=== PATIENT | male | born 1985 | race Two or more races ===

== ENCOUNTER 2025-03-20 10:29 | Inpatient (IN) | payer MEDICAID, OTHER ==
[~2025-03-20] VITALS: Ht 170.2 cm; Wt 79.3 kg
--- NOTE | 2025-03-20 10:58 | ED.PDOC ---
GI ASSESSMENT HPI Comments 39 y/o M, with PMHx of DM presents to the ED for CC of nausea and vomiting. Patient states, that he has been experiencing nausea, vomiting, and diarrhea x3days. Patient reports,m associated epigastric abdominal pain when vomiting. Patient reports, that he ate an edible x6days ago and is unsure if symptoms are related. Patient complains, of current 5/10 abdominal pain. Patient denies dysuria, fever, melena, fatigue, or fever. No other symptoms or modifying factors present at this time. Time Seen by MD: 10:50 Reviewed Notes: Nurses Notes, Medications, Allergies Allergies: Coded Allergies: NO KNOWN ALLERGIES (Unverified , 03/20/25) Information Source: Patient Mode of Arrival: Ambulatory Timing: Days Duration: Since onset Prehospital treatment: None Quality: None Vomitus: Watery Stool: Watery Severity: None Recent: None Recent Hx of: None Pain Location: Epigastric Modifying Factors: Nothing Associated sign and symptoms: Nausea, Vomiting, Diarrhea, Abdominal Pain Past Medical History PAST MEDICAL HISTORY: DM Surgical History (Other): cyst Family History Family History: Unknown Social History Smoker: Other (vapes) Alcohol: Occasionally Drugs: Other (edibels) Lives In: Home Constitutional: denies: chills, diaphoresis, fatigue, fever, malaise, sweats, weakness, others EENTM: denies: blurred vision, double vision, ear bleeding, ear discharge, ear drainage, ear pain, ear ringing, eye pain, eye redness, hearing loss, mouth pain, mouth swelling, nasal discharge, nose bleeding, nose congestion, nose pain, photophobia, tearing, throat pain, throat swelling, voice changes, others Respiratory: denies: cough, hemoptysis, orthopnea, SOB at rest, shortness of breath, SOB with excertion, stridor, wheezing, others Cardiovascular: denies: chest pain, dizzy spells, diaphoresis, Dyspnea on exertion, edema, irregular heart beat, left arm pain, lightheadedness, palpitations, PND, syncope, others Gastrointestinal: reports: abdominal pain, diarrhea, nausea, vomiting; denies: abdomen distended, blood streaked bowels, constipated, dysphagia, difficulty swallowing, hematemesis, melena, poor appetite, poor fluid intake, rectal ble eding, rectal pain, others Genitourinary: denies: burning, dysuria, flank pain, frequency, hematuria, inco ntinence, penile discharge, penile sore, pain, testicle pain, testicle swelling, urgency, others Neurological: denies: dizziness, fainting, headache, left sided numbness, left sided weakness, numbness, paresthesia, pre-existing deficit, right sided numbness, right sided weakness, seizure, speech problems, tingling, tremors, weakness, others Musculoskeletal: denies: back pain, gout, joint pain, joint swelling, muscle pain, muscle stiffness, neck pain, others Integumetry: denies: bruises, change in color, change in hair/nails, dryness, laceration, lesions, lumps, rash, wounds, others Allergic/Immunocompromised: denies: Difficulty Healing, Frequent Infections, Hives, Itching, others Hematologic/Lymphatic: denies: anemia, blood clots, easy bleeding, easy bruising, swollen glands, others Endocrine: denies: excessive hunger, excessive sweating, excessive thirst, excessive urination, flushing, intolerance to cold, intolerance to heat, unexplained weight gain, unexplained weight loss, others Psychiatric: denies: anxiety, bipolar disorder, depression, hopeless, panic disorder, schizophrenia, sleepless, suicidal, others All Other Systems: Reviewed and Negative Physical Exam General Appearance: Moderate Distress HEENT: Normal ENT Inspection, Pharynx Normal, TMs Normal Neck: Full Range of Motion, Non-Tender, Normal, Normal Inspection Respiratory: Chest Non-Tender, Lungs Clear, No Accessory Muscle Use, No Respiratory Distress, Normal Breath Sounds Cardiovascular: No Edema, No JVD, No Murmur, No Gallop, Normal Peripheral Pulses, Regular Rate/Rhythm Breast Exam: Deferred Gastrointestinal: Epigastric, No Organomegaly, No Pulsatile Mass, Normal Bowel Sounds, Soft, Tenderness Genitalia: Deferred Pelvic: Deferred Rectal: Deferred Extremities: No calf tenderness, Normal capillary refill, Normal inspection, Normal range of motion, Non-tender, No pedal edema Musculoskeletal : Apperance: Normal Neurologic: Alert, meat carrier II-XII nml as Tested, Motor Weakness, Normal Affect, Normal Mood, No Sensory Deficits Cerebellar Function: Normal Reflexes: Normal Skin: Dry, Normal Color, Warm Lymphatic: No Adenopathy Was a procedure done? Was a procedure done?: No GI differential Dx Differential Diagnosis: Gastritis/PUD, Gastroenteritis, Drug toxicity, Electrolyte Imbalance, Food Poisoning, Bacterial, Viral X-Ray, Labs, Meds, VS Vital Signs Date Time Temp Pulse Resp B/P (MAP) Pulse Ox O2 Delivery O2 Flow Rate FiO2 03/20/25 12:29 136 18 98 Room Air* 0 21 03/20/25 12:29 97.8 136 18 149/100 (116) 98 97.8 03/20/25 10:54 97.5 131 22 143/92 (109) 96 97.5 03/20/25 10:54 Room Air 0 Lab Test 03/20/25 11:12 03/20/25 11:05 Range/Units White Blood Count 11.1 H 4.4-10.8 10^3/uL Red Blood Count 5.49 4.5-5.90 10^6/uL Hemoglobin 17.0 13.5-17.5 g/dL Hematocrit 50.4 41.0-53.0 % Mean Corpuscular Volume 91.9 80.0-100.0 fL Mean Corpuscular Hemoglobin 31.0 28.0-32.0 pg Mean Corpuscular Hemoglobin Concent 33.7 32.0-36.0 g/dL Red Cell Distribution Width 15.0 H 11.8-14.3 % Platelet Count 289 140-450 10^3/uL Mean Platelet Volume 9.2 6.9-10.8 fL Neutrophils (%) (Auto) 87.0 H 37.0-80.0 % Lymphocytes (%) (Auto) 7.5 L 10.0-50.0 % Monocytes (%) (Auto) 5.3 0.0-12.0 % Eosinophils (%) (Auto) 0.0 0.0-7.0 % Basophils (%) (Auto) 0.2 0.0-2.0 % Neutrophils # (Auto) 9.7 H 1.6-8.6 10 ^3/uL Lymphocytes # (Auto) 0.8 0.4-5.4 10 ^3/uL Monocytes # (Auto) 0.6 0-1.3 10 ^3/uL Eosinophils # (Auto) 0 0-0.8 10 ^3/uL Basophils # (Auto) 0 0-0.2 10 ^3/uL Nucleated Red Blood Cells 0.1 % Sodium Level 125 L 136-145 mmol/L Potassium Level 4.3 3.5-5.1 mmol/L Chloride Level 83 L 98-107 mmol/L Carbon Dioxide Level 12 L 20-31 mmol/L Anion Gap 30 H 5-15 Blood Urea Nitrogen 34 H 9-23 mg/dL Creatinine 2.24 H 0.700-1.30 mg/dL Glomerular Filtration Rate Calc 38 >90 mL/min BUN/Creatinine Ratio 15.2 10.0-20.0 Serum Glucose 494 *H 74-106 mg/dL Calcium Level 10.1 8.7-10.4 mg/dL Total Bilirubin 1.5 H 0.2-1.0 mg/dL Aspartate Amino Transferase (AST) 31 13-40 U/L Alanine Aminotransferase (ALT) 42 H 7-40 U/L Alkaline Phosphatase 125 H 46-116 U/L Total Protein 10.7 H 5.7-8.2 g/dL Albumin 5.9 H 3.2-4.8 g/dL Lipase 96 H 12-53 U/L Urine Color Light-yellow Yellow Urine Clarity Clear Clear Urine pH 5.5 5.0-9.0 Urine Specific [place] 1.026 1.001-1.035 Urine Protein 1+ H Negative Urine Ketones 4+ H Negative Urine Blood 2+ H Negative /uL Urine Nitrite Negative Negative Urine Bilirubin Negative Negative Urine Urobilinogen Normal Negative mg/dL Urine Leukocyte Esterase Negative Negative /uL Urine RBC 1 0 - 3 /hpf Urine Microscopic WBC 1 0-3 /HPF Urine Squamous Epithelial Cells Few <5 /hpf Urine Bacteria None seen None Seen /hpf Urine Hyaline Casts Few 0 - 2 /lpf Urine Glucose 4+ H Normal mg/dL Current Medications Medications (Trade) Dose Ordered Sig/Mariela Route Start Time Stop Time Status Last Admin Sodium Chloride 1,000 ml @ 1,000 mls/hr Q1H ONCE IVB 03/20/25 11:00 03/20/25 11:59 DC 03/20/25 12:32 Pantoprazole Sodium (Protonix) 40 mg ONCE ONCE IV 03/20/25 11:00 03/20/25 11:01 DC 03/20/25 12:32 Prochlorperazine Edisylate (Compazine Inj) 10 mg ONCE ONCE IV 03/20/25 11:00 03/20/25 11:01 DC 03/20/25 12:33 CT FINDINGS: IMPRESSION: Mild Peripancreatic fat stranding could be seen with mild pancreatitis. Mild hepatic steatosis. IV Hep-Lock was established The patient was given a 1 L bolus of normal saline The patient was given Protonix 40 mg IV push The patient was given Compazine 10 mg IV push The patient's CBC shows an elevated white blood cell count of 11.1 The rest of the CBC is within normal limits The chemistry panel shows a BUN of 34 and a creatinine of 2.24 The urine test is positive for ketones and glucose but no infection The patient is being given insulin IV push secondary to the glucose of 495 The patient is being admitted at this time The patient does have an elevated anion gap as well as a decreased CO2 level We also feel that this patient could be going to early DKA so the patient is being started on insulin as well as the insulin drip The patient is being admitted Images Reviewed?: Images reviewed and evaluated by me Time of 1ST Reevaluation: 11:20 Reevaluation 1ST: Unchanged Patient Education/Counseling: Diagnosis, Treatment Family Education/Counseling: No Family Present Departure 1 Departure Time of Disposition: 12:47 Impression: Primary Impression: Diabetic ketoacidosis Qualified Codes: E13.11 - Other specified diabetes mellitus with ketoacidosis with coma Additional Impressions: Acute pancreatitis Qualified Codes: K85.90 - Acute pancreatitis without necrosis or infection, unspecified Generalized weakness Disposition: ADMITTED INPATIENT Admit to: ICU Condition: Fair Critical Care Note Critical Care Time?: Yes (45 min-critical care time only) Stability Stability form required: Yes Unstable for transfer: ICU, CCU, PCU, ROMANA (Intensive VS monitoring), ED Physician Assesment (Clinical assesment) Heart Score Heart Score: Heart Score Response (Comments) Value History N/A 0 EKG N/A 0 Age N/A 0 Risk Factors N/A 0 Troponin N/A 0 Total 0 I personally scribed for MILO GODOY MD ([email or web address]) on 03/20/25 at 10:58. Electronically submitted by Ignacia Aguiar ([email or web address]). I personally scribed for MILO GODOY MD ([email or web address]) on 03/20/25 at 12:27. Electronically submitted by Ignacia Aguiar ([email or web address]). MILO GODOY MD March 20, 2025 10:58
[2025-03-20 11:06] LABS: Urine Bacteria None Seen /hpf (None Seen)
[2025-03-20 11:37] LABS: Basophils # (auto) 0 10 ^3/uL (0-0.2); Basophils % (auto) 0.2 % (0.0-2.0); Eosinophils # (auto) 0 10 ^3/uL (0-0.8); Hematocrit 50.4 % (41.0-53.0); Lymphocytes # (auto) 0.8 10 ^3/uL (0.4-5.4); Lymphocytes % (auto) 7.5 % (10.0-50.0); Mean Corpuscular Hgb Conc. 33.7 g/dL (32.0-36.0); Mean Corpuscular Volume 91.9 fL (80.0-100.0); Monocytes # (auto) 0.6 10 ^3/uL (0-1.3); Monocytes % (auto) 5.3 % (0.0-12.0); Neutrophils # (auto) 9.7 10 ^3/uL (1.6-8.6); Nucleated Red Blood Cells % 0.1 %; Platelet Count (auto) 289 10^3/uL (140-450); Red Blood Cells 5.49 10^6/uL (4.5-5.90); White Blood Cell 11.1 10^3/uL (4.4-10.8)
[2025-03-20 11:40] LABS: Urine Blood 2+ /uL (Negative); Urine Clarity Clear (Clear); Urine Color Light-Yellow (Yellow); Urine Hyaline Cast FEW /lpf (0 - 2); Urine Protein, UAD 1+ (Negative); Urine Specific Gravity 1.026 (1.001-1.035); Urine Squamous Epithelial Cell FEW /hpf (<5); Urine Urobilinogen Normal (Negative); Urine WBC 1 /HPF (0-3); Urine pH 5.5 (5.0-9.0)
[2025-03-20 11:46] LABS: Anion Gap 30 (5-15); Aspartate Aminotransferase 31 U/L (13-40); BUN/Creatinine Ratio 15.2 (10.0-20.0); Calcium 10.1 mg/dL (8.7-10.4); Potassium 4.3 mmol/L (3.5-5.1)
[2025-03-20 11:49] LABS: Alanine Aminotransferase 42 U/L (7-40); Alkaline Phosphatase 125 U/L (46-116); Bilirubin, Total 1.5 mg/dL (0.2-1.0); Blood Urea Nitrogen 34 mg/dL (9-23); Carbon Dioxide 12 mmol/L (20-31); Chloride 83 mmol/L (98-107); Lipase 96 U/L (12-53); Sodium 125 mmol/L (136-145); Total Protein 10.7 g/dL (5.7-8.2)
[2025-03-20 11:51] LABS: Glucose 494 mg/dL (74-106)
[2025-03-20 11:58] LABS: Albumin 5.9 g/dL (3.2-4.8)
--- NOTE | 2025-03-20 12:20 | DVH ---
CT CT AB PEL WO CON-NO ORAL OR IV INDICATION: pain EXAM DATE: 03/20/2025 11:38 AM COMPARISON: None RADIATION DOSE: CTDIvol: 7 mGy, DLP: 390 mGy*cm PROCEDURE: Helical CT images were obtained of the abdomen and pelvis without IV contrast Sagittal and coronal reconstructions are provided. ORAL CONTRAST: None. ADDITIONAL IMAGES / REFORMATS: None All C T scans at this medical facility are performed using dose modulation techniques as appropriate to a p erformed exam including the following: Automated exposure control was utilized; adjustment of the MA and/or KV according to patient size; and use of iterative reconstruction technique. FINDINGS: LUNG BASE: Normal. LIVER: There is hepatic steatosis. GALLBLADDER AND BILIARY TREE: There are cholecystectomy clips. No intra- or extrahepatic biliary duct al dilation. PANCREAS: Mild Peripancreatic fat stranding. SPLEEN: Normal. BOWEL: Normal. ADRENALS: Normal. KIDNEYS AND URETER: Normal. BLADDER: Normal. REPRODUCTIVE ORGANS: Normal. LYMPH NODES:No lymphadenopathy. PERITONEUM: No ascites or free air. No other fluid collection. VESSELS: Scattered atherosclerotic calcifications are noted. RETROPERITONEUM: Normal. ABDOMINAL WALL: Normal. BONES: Scattered osseous degenerative changes are noted. IMPRESSION: Mild Peripancreatic fat stranding could be seen with mild pancreatitis. Mild hepatic steatosis.
[2025-03-20 12:29] VITALS: PULSE 136; RESP 18; O2SAT 98
[2025-03-20] MEDS: PANTOPRAZOLE 40 MG/10 ML VIAL INJ IV ONE ×2 (12:32→21:56)
[2025-03-20] MEDS: SODIUM CHLORIDE 0.9% 1,000 ML IVB ONE (12:32)
[2025-03-20] MEDS: PROCHLORPERAZINE EDISYLATE 5 MG/ML 2ML VIAL IV ONE (12:33)
[2025-03-20] MEDS ORDERED: DEXTROSE (50%) 50ML SYRG IV PRN (13:00)
[2025-03-20] MEDS: INSULIN LANTUS (GLARGINE) 1 /0.01ml (100units/ml) SC ONE (13:31)
[2025-03-20] MEDS: SODIUM CHLORIDE 0.9% 1,000 ML IV SCH ×3 (13:45→20:26)
[2025-03-20] MEDS: ACCU-CHEK COMFORT CURVE STRIP VI SCH (14:27)
[2025-03-20] MEDS: INSULIN DRIP 100 UNIT/100ML 100 ML IV SCH (14:28)
[2025-03-20] MEDS ORDERED: MORPHINE SULFATE INJ 2 MG/ml SYRG IV PRN (16:15)
[2025-03-20] MEDS ORDERED: NITROGLYCERIN 0.4 MG SL TAB SL PRN (16:15)
--- NOTE | 2025-03-20 16:28 | DVHHP2 ---
History of Present Illness Reason for Visit: Generalized weakness, nausea and vomiting, throat pain, abdominal pain History of Present Illness The patient has a 39-year-old male presenting to the emergency room with worsening nausea and vomiting, abdominal pain, inability to tolerate oral intake, generalized weakness. Upon arrival to the hospital the patient was found to be severely tachycardic, in addition to having severe hyperglycemia. Patient reports that he has not been able to hold fluid down for the past several days. Patient was notified and CT scan findings of pancreatitis, for which the patient does report having heavy alcohol intake approximately four days ago, for which he does on occasion. Patient also reports not being compliant with his diabetic medications. Other significant history includes nicotine dependence with vaping, occasional marijuana use, as well as reported alcoholism. Endocrine: Diabetes Past Surgical History: None Family History: None ALCOHOL: heavy Drugs: Marijuana Lives: with Family Review of Systems Constitutional: Yes: Weakness Eyes: No: Pain, Vision change, Conjunctivae inflammation, Eyelid inflammation, Other, Redness ENT: Throat pain Respiratory: No: Cough, Dry, Shortness of breath, SOB with excertion, Wheezing, Hemoptysis, Pleuritic Pain, Sputum, Wheezing, Other Gastrointestinal: Nausea, Vomiting, Abdominal Pain, Diarrhea Musculoskeletal: No: other, neck pain, shoulder pain, arm pain, back pain, hand pain, leg pain, foot pain Neurological: No: Weakness, Numbness, Incoordination, Change in speech, Confusion, Seizures, Other Allergies: Coded Allergies: NO KNOWN ALLERGIES (Unverified , 03/20/25) Medications Current Medications Medications Dose Ordered Sig/Mariela Route Start Time Stop Time Status Last Admin Dose Admin Insulin Human (Reg)/Sodium Chloride 100 ml @ 0.5 mls/hr Q24H IV 03/20/25 13:00 03/20/25 14:28 6 MLS/HR Diagnostic Test (Pha) 1 strip Q90MIN 03/20/25 13:30 03/20/25 16:22 1 STRIP Dextrose 50 ml PRN PRN IV 03/20/25 13:00 Insulin Glargine 15 units DAILY SC 03/21/25 10:00 Sodium Chloride 1,000 ml @ 500 mls/hr Q2H IV 03/20/25 13:45 03/20/25 17:44 03/20/25 16:02 500 MLS/HR Sodium Chloride 1,000 ml @ 250 mls/hr Q4H IV 03/20/25 17:45 03/20/25 19:44 Sodium Chloride 1,000 ml @ 150 mls/hr Q6H40M IV 03/20/25 19:45 Nitroglycerin 0.4 mg Q5MINP PRN SL 03/20/25 16:15 UNV Morphine Sulfate 2 mg Q30M PRN IV 03/20/25 16:15 UNV Morphine Sulfate 1 mg Q4HPRN PRN IV 03/20/25 16:15 UNV Acetaminophen/ Hydrocodone Bitart 1 tab Q6HPRN PRN PO 03/20/25 16:15 UNV Acetaminophen 500 mg Q8HP PRN PO 03/20/25 16:15 UNV Ondansetron HCl 4 mg Q6HP PRN IV 03/20/25 16:15 UNV Exam Vital Signs Vital Signs Date Time Temp Pulse Resp B/P (MAP) Pulse Ox O2 Delivery O2 Flow Rate FiO2 03/20/25 15:00 119 18 120/63 (82) 97 03/20/25 12:29 Room Air* 0 21 03/20/25 12:29 97.8 97.8 General Appearance: Alert, Oriented X3, Cooperative, moderate distress HEENT: Atraumatic, PERRLA Respiratory: Clear to auscultation, Normal air movement Cardiovascular: Normal S1, Normal S2 Abdominal: Normal bowel sounds, Soft, Other (Epigastric pain) Extremities: No clubbing, No cyanosis Neuro: Normal gait, Normal speech Psych/Mental Status: Mental status NL, Mood NL Labs/Xrays Labs Test 03/20/25 14:23 03/20/25 11:12 03/20/25 11:05 Range/Units POC Glucose 433 *H 70-106 mg/dl White Blood Count 11.1 H 4.4-10.8 10^3/uL Red Blood Count 5.49 4.5-5.90 10^6/uL Hemoglobin 17.0 13.5-17.5 g/dL Hematocrit 50.4 41.0-53.0 % Mean Corpuscular Volume 91.9 80.0-100.0 fL Mean Corpuscular Hemoglobin 31.0 28.0-32.0 pg Mean Corpuscular Hemoglobin Concent 33.7 32.0-36.0 g/dL Red Cell Distribution Width 15.0 H 11.8-14.3 % Platelet Count 289 140-450 10^3/uL Mean Platelet Volume 9.2 6.9-10.8 fL Neutrophils (%) (Auto) 87.0 H 37.0-80.0 % Lymphocytes (%) (Auto) 7.5 L 10.0-50.0 % Monocytes (%) (Auto) 5.3 0.0-12.0 % Eosinophils (%) (Auto) 0.0 0.0-7.0 % Basophils (%) (Auto) 0.2 0.0-2.0 % Neutrophils # (Auto) 9.7 H 1.6-8.6 10 ^3/uL Lymphocytes # (Auto) 0.8 0.4-5.4 10 ^3/uL Monocytes # (Auto) 0.6 0-1.3 10 ^3/uL Eosinophils # (Auto) 0 0-0.8 10 ^3/uL Basophils # (Auto) 0 0-0.2 10 ^3/uL Nucleated Red Blood Cells 0.1 % Sodium Level 125 L 136-145 mmol/L Potassium Level 4.3 3.5-5.1 mmol/L Chloride Level 83 L 98-107 mmol/L Carbon Dioxide Level 12 L 20-31 mmol/L Anion Gap 30 H 5-15 Blood Urea Nitrogen 34 H 9-23 mg/dL Creatinine 2.24 H 0.700-1.30 mg/dL Glomerular Filtration Rate Calc 38 >90 mL/min BUN/Creatinine Ratio 15.2 10.0-20.0 Serum Glucose 494 *H 74-106 mg/dL Calcium Level 10.1 8.7-10.4 mg/dL Total Bilirubin 1.5 H 0.2-1.0 mg/dL Aspartate Amino Transferase (AST) 31 13-40 U/L Alanine Aminotransferase (ALT) 42 H 7-40 U/L Alkaline Phosphatase 125 H 46-116 U/L Total Protein 10.7 H 5.7-8.2 g/dL Albumin 5.9 H 3.2-4.8 g/dL Lipase 96 H 12-53 U/L Urine Color Light-yellow Yellow Urine Clarity Clear Clear Urine pH 5.5 5.0-9.0 Urine Specific [place] 1.026 1.001-1.035 Urine Protein 1+ H Negative Urine Ketones 4+ H Negative Urine Blood 2+ H Negative /uL Urine Nitrite Negative Negative Urine Bilirubin Negative Negative Urine Urobilinogen Normal Negative mg/dL Urine Leukocyte Esterase Negative Negative /uL Urine RBC 1 0 - 3 /hpf Urine Microscopic WBC 1 0-3 /HPF Urine Squamous Epithelial Cells Few <5 /hpf Urine Bacteria None seen None Seen /hpf Urine Hyaline Casts Few 0 - 2 /lpf Urine Glucose 4+ H Normal mg/dL Assessment/Plan Assessment/Plan Impression: -diabetic ketoacidosis -acute pancreatitis -acute kidney injury, vasomotor nephropathy -nicotine dependence -alcoholism Plan: -admit to step-down ICU -aggressive IV hydration -continue insulin drip per protocol -NPO status -pain management -antiemetics -repeat labs in a.m. -Lifestyle modification education: 10 minutes spent with the patient regarding the need to curb alcohol and nicotine intake Total time spent with patient discussing and formulating plan of care: 35 minutes. This medical document was created using an electronic medical record system with [employer] dictation system. Although this document has been carefully reviewed, there may still be some phonetic and typographical errors. These areas are purely typographical due to imperfections of the software programs, and do not reflect any compromise in the patient's medical care. Plan discussed with: Patient, Other (RN) My Orders Orders - PATRICIA HARRY [employer] SPECIALIST Procedure Category Date Status Time Admit ADMIT 03/20/25 Transmitted 16:06 Nitroglycerin PHA 03/20/25 Logged Sublingual (Ntrostat 16:15 Morphine Sulfate PHA 03/20/25 Logged Injection 16:15 Stat Ekg For Chest ANGELY 03/20/25 In Process Pain 16:06 Notify Of Changes ANGELY 03/20/25 In Process From Base 16:06 Ui Designer For ANGELY 03/20/25 In Process 24 Hours 16:06 Emergency Dysrhythmia ANGELY 03/20/25 In Process Protocol 16:06 Rhythm Strips Once ANGELY 03/20/25 In Process Every Shift 16:06 Oxygen By Nasal RT 03/20/25 Transmitted Cannula 16:06 Basic Metabolic Panel LAB 03/21/25 Verified 04:00 Lipase LAB 03/21/25 Verified 04:00 Lipid Panel LAB 03/21/25 Verified 04:00 Morphine Sulfate PHA 03/20/25 Logged Injection 16:15 Hydrocodone-Acet PHA 03/20/25 Logged 5/325mg Tab ([place] 16:15 Acetaminophen Tab Or PHA 03/20/25 Logged Cap (Tylenol Tablet 16:15 Ondansetron Hcl PHA 03/20/25 Logged (Zofran) 16:15 Hemoglobin A1c LAB 03/21/25 Verified 04:00 Date of Service: March 20, 2025 Billing Provider: PATRICIA HARRY NP Common Visit Codes: 47517-[id number] CARE 30-74 MIN Secondary Visit Codes: 03345-HZZCE CHNG SMOKING >10MIN PATRICIA HARRY NP March 20, 2025 16:28
[2025-03-20 21:00] VITALS: PULSE 102; RESP 25; O2SAT 99
[2025-03-20] MEDS: ONDANSETRON HCL 4 MG/2 ML VIAL IV PRN (21:37)
[2025-03-20] MEDS: MORPHINE SULFATE INJ 2 MG/ml SYRG IV PRN (22:15)
[2025-03-21 05:45] LABS: Chloride 102 mmol/L (98-107); Potassium 4.1 mmol/L (3.5-5.1); Sodium 137 mmol/L (136-145)
[2025-03-21 05:46] LABS: Anion Gap 17 (5-15)
[2025-03-21 05:51] LABS: BUN/Creatinine Ratio 13.5 (10.0-20.0); Blood Urea Nitrogen 19 mg/dL (9-23)
[2025-03-21 05:55] LABS: Carbon Dioxide 18 mmol/L (20-31); Glucose 142 mg/dL (74-106); Lipase 75 U/L (12-53)
[2025-03-21 06:36] LABS: Triglycerides 175 mg/dL (< 150)
[2025-03-21 06:37] LABS: LDL Cholesterol 202 mg/dL (< 100)
[2025-03-21 06:38] LABS: HDL Cholesterol 44 mg/dL (40-59)
[2025-03-21 06:42] LABS: Cholesterol 272 mg/dL (< 200)
[2025-03-21] MEDS: D5W/SOD CHL 0.45%/KCL 20MEQ 1,000 ML IV SCH (06:51)
[2025-03-21] MEDS: HYDROcodone-ACET 5/325MG TAB PO PRN (07:09)
[2025-03-21 08:41] LABS: Amphetamine Screen, Urine Neg (NEGATIVE); Barbiturate Scree,Urine Neg (NEGATIVE); Benzodiazephine Screen, Urine Neg (NEGATIVE); Cannabinoid Screen, Urine Neg (NEGATIVE); Cocaine Screen, Urine Neg (NEGATIVE); Opiate Scree,Urine Neg (NEGATIVE); Phencyclidine Screen, Urine Neg (NEGATIVE)
--- NOTE | 2025-03-21 08:46 | DVHPN2 ---
Subjective Patient continues to report having nausea. Reviewed: Care Plan, H&P, Labs, Medications Changes from previous H/P or p: No Changes General: Per HPI Eyes: No Pain, No Vision change, No Conjunctivae inflammation, No Eyelid inflammation, No Other, No Redness ENT: Throat pain Respiratory: No Cough, No Dry, No Shortness of breath, No SOB with excertion, No Wheezing, No Hemoptysis, No Pleuritic Pain, No Sputum, No Other Gastrointestinal: Nausea, Vomiting, Abdominal Pain, Diarrhea Musculoskeletal: No other, No neck pain, No shoulder pain, No arm pain, No back pain, No hand pain, No leg pain, No foot pain Objective Vitals Vital Signs Date Time Temp Pulse Resp B/P (MAP) Pulse Ox O2 Delivery O2 Flow Rate FiO2 03/21/25 08:00 98.6 94 16 133/76 (95) 99 98.6 03/21/25 07:40 Nasal Cannula* 2 28 Intake/Output Intake and Output 03/21/25 07:00 Intake Total 4941 ml Balance 4941 ml Intake IV Total 4941 ml General Appearance: Alert, Oriented X3, Cooperative, mild distress HEENT: Atraumatic, PERRLA Cardiovascular: Normal S1, Normal S2 Neuro: Normal gait, Normal speech Skin: Dry, Intact Psych/Mental Status: Mental status NL, Mood NL Medications Current Medications Medications Dose Ordered Sig/Mariela Route Start Time Stop Time Status Last Admin Dose Admin Insulin Human (Reg)/Sodium Chloride 100 ml @ 0.5 mls/hr Q24H IV 03/20/25 13:00 03/20/25 14:28 6 MLS/HR Diagnostic Test (Pha) 1 strip Q90MIN 03/20/25 13:30 03/21/25 07:52 1 STRIP Dextrose 50 ml PRN PRN IV 03/20/25 13:00 Insulin Glargine 15 units DAILY SC 03/21/25 10:00 Nitroglycerin 0.4 mg Q5MINP PRN SL 03/20/25 16:15 Morphine Sulfate 2 mg Q30M PRN IV 03/20/25 16:15 Morphine Sulfate 1 mg Q4HPRN PRN IV 03/20/25 16:15 03/21/25 04:21 1 MG Acetaminophen/ Hydrocodone Bitart 1 tab Q6HPRN PRN PO 03/20/25 16:15 03/21/25 07:09 1 TAB Acetaminophen 500 mg Q8HP PRN PO 03/20/25 16:15 Potassium Chloride/Dextrose/ Sod Cl 1,000 ml @ 120 mls/hr Q8H20M IV 03/21/25 06:45 03/21/25 06:51 120 MLS/HR Ondansetron HCl 4 mg Q4HPRN PRN IV 03/21/25 08:30 Metoclopramide HCl 10 mg Q6HPRN PRN IV 03/21/25 07:15 Laboratory Results Laboratory Tests 03/20/25 11:12 03/21/25 05:08 Chemistry Test 03/20/25 11:12 03/21/25 05:08 Albumin 5.9 g/dL (3.2-4.8) H Calcium Level 10.1 mg/dL (8.7-10.4) 9.0 mg/dL (8.7-10.4) Total Protein 10.7 g/dL (5.7-8.2) H Lipid panel Test 03/20/25 11:12 03/21/25 05:08 Lipase 96 U/L (12-53) H 75 U/L (12-53) H Cholesterol Level 272 mg/dL (< 200) H HDL Cholesterol 44 mg/dL (40-59) Triglycerides Level 175 mg/dL (< 150) H LFT Test 03/20/25 11:12 Alanine Aminotransferase (ALT) 42 U/L (7-40) H Alkaline Phosphatase 125 U/L (46-116) H Aspartate Amino Transferase (AST) 31 U/L (13-40) Total Bilirubin 1.5 mg/dL (0.2-1.0) H HgA1c, TSH Test 03/21/25 05:08 Hemoglobin A1c 11.0 % A1C (<5.7) H Urinalysis Test 03/20/25 11:05 Urine Color Light-yellow (Yellow) Urine Clarity Clear (Clear) Urine pH 5.5 (5.0-9.0) Urine Specific [place] 1.026 (1.001-1.035) Urine Protein 1+ (Negative) H Urine Ketones 4+ (Negative) H Urine Blood 2+ /uL (Negative) H Urine Nitrite Negative (Negative) Urine Bilirubin Negative (Negative) Urine Urobilinogen Normal mg/dL (Negative) Urine Leukocyte Esterase Negative /uL (Negative) Urine RBC 1 /hpf (0 - 3) Urine Microscopic WBC 1 /HPF (0-3) Urine Squamous Epithelial Cells Few /hpf (<5) Urine Bacteria None seen /hpf (None Seen) Urine Hyaline Casts Few /lpf (0 - 2) Urine Glucose 4+ mg/dL (Normal) H Labs and/or images reviewed: Labs reviewed by me, Image(s) reviewed by me Assessment/Plan Assessment/Plan Impression: -diabetic ketoacidosis -acute pancreatitis -acute kidney injury, vasomotor nephropathy -nicotine dependence -alcoholism Plan: Events: Patient's renal function improving. Blood sugars now controlled. Anion gap still not closed. Patient states that he still has nausea, but improving. -continue IV fluids per covering hospitalist -continue insulin drip per protocol -NPO status -pain management -antiemetics -UDS pending -repeat BMP this afternoon, a.m. lab Total time spent with patient discussing and formulating plan of care: 35 minutes. This medical document was created using an electronic medical record system with [employer] dictation system. Although this document has been carefully reviewed, there may still be some phonetic and typographical errors. These areas are purely typographical due to imperfections of the software programs, and do not reflect any compromise in the patient's medical care. Plan discussed with: Patient, Other (RN) My Orders Orders - PATRICIA HARRY TAX COLLECTOR Procedure Category Date Status Time Admit ADMIT 03/20/25 Transmitted 16:06 Nitroglycerin PHA 03/20/25 In Process Sublingual (Ntrostat 16:15 Morphine Sulfate PHA 03/20/25 In Process Injection 16:15 Stat Ekg For Chest ANGELY 03/20/25 In Process Pain 16:06 Notify Of Changes ANGELY 03/20/25 In Process From Base 16:06 Materials Buyer For ANGELY 03/20/25 In Process 24 Hours 16:06 Emergency Dysrhythmia ANGELY 03/20/25 In Process Protocol 16:06 Rhythm Strips Once ANGELY 03/20/25 In Process Every Shift 16:06 Oxygen By Nasal RT 03/20/25 Transmitted Cannula 16:06 Morphine Sulfate PHA 03/20/25 In Process Injection 16:15 Hydrocodone-Acet PHA 03/20/25 In Process 5/325mg Tab ([place] 16:15 Acetaminophen Tab Or PHA 03/20/25 In Process Cap (Tylenol Tablet 16:15 Basic Metabolic Panel LAB 03/21/25 Logged 13:00 Drug Screen LAB 03/21/25 In Process 08:02 Complete Blood Count LAB 03/22/25 Verified 04:00 Comprehensive LAB 03/22/25 Verified Metabolic Panel 04:00 Date of Service: March 21, 2025 Billing Provider: PATRICIA HARRY NP Common Visit Codes: [id number] CARE 30-74 MIN PATRICIA HARRY NP March 21, 2025 08:46
[2025-03-21] MEDS: INSULIN LANTUS (GLARGINE) 1 /0.01ml (100units/ml) SC SCH (09:00)
[2025-03-21] MEDS: METOCLOPRAMIDE HCL 5MG/ml INJ 2ml VIAL IV PRN (10:28)
[2025-03-21 13:27] LABS: Chloride 104 mmol/L (98-107); Sodium 140 mmol/L (136-145)
[2025-03-21 13:28] LABS: Anion Gap 14 (5-15); Calcium 10.3 mg/dL (8.7-10.4); Carbon Dioxide 22 mmol/L (20-31)
[2025-03-21 13:33] LABS: BUN/Creatinine Ratio 12.3 (10.0-20.0); Blood Urea Nitrogen 18 mg/dL (9-23)
[2025-03-21 13:39] LABS: Glucose 178 mg/dL (74-106)
[2025-03-21] MEDS: LACTATED RINGER'S 1,000 ML IV SCH (14:50)
[2025-03-22] VITALS (9 sets, daily range): BP systolic 115–138; BP diastolic 77–92; PULSE 79–89; RESP 16–20; TEMP 97.5–98.4; O2SAT 98–100
[2025-03-22] MEDS: ONDANSETRON HCL 4 MG/2 ML VIAL IV PRN (03:44)
[2025-03-22] MEDS ORDERED: DEXTROSE (50%) 50ML SYRG IV PRN (05:30)
[2025-03-22] MEDS: ACETAMINOPHEN 500 MG TAB or CAP PO PRN (06:30)
[2025-03-22] MEDS: InsuLIN REG 1unit/0.01ml Soln (100units/ml) SC SCH (06:32)
[2025-03-22] MEDS: ACCU-CHEK COMFORT CURVE STRIP VI SCH (06:34)
[2025-03-22 06:49] LABS: Basophils # (auto) 0 10 ^3/uL (0-0.2); Basophils % (auto) 0.3 % (0.0-2.0); Eosinophils # (auto) 0 10 ^3/uL (0-0.8); Eosinophils % (auto) 0.4 % (0.0-7.0); Hematocrit 41.8 % (41.0-53.0); Hemoglobin 14.2 g/dL (13.5-17.5); Lymphocytes # (auto) 1.4 10 ^3/uL (0.4-5.4); Lymphocytes % (auto) 28.9 % (10.0-50.0); Mean Corpuscular Hemoglobin 30.8 pg (28.0-32.0); Mean Corpuscular Volume 90.6 fL (80.0-100.0); Monocytes # (auto) 0.6 10 ^3/uL (0-1.3); Monocytes % (auto) 11.6 % (0.0-12.0); Neutrophils # (auto) 2.8 10 ^3/uL (1.6-8.6); Neutrophils % (auto) 58.8 % (37.0-80.0); Nucleated Red Blood Cells % 0.1 %; Platelet Count (auto) 162 10^3/uL (140-450); Red Blood Cells 4.62 10^6/uL (4.5-5.90); White Blood Cell 4.7 10^3/uL (4.4-10.8)
[2025-03-22 07:05] LABS: Alanine Aminotransferase 34 U/L (7-40); Alkaline Phosphatase 85 U/L (46-116); Anion Gap 17 (5-15); Aspartate Aminotransferase 28 U/L (13-40); BUN/Creatinine Ratio 10.1 (10.0-20.0); Blood Urea Nitrogen 13 mg/dL (9-23); Calcium 9.7 mg/dL (8.7-10.4); Chloride 99 mmol/L (98-107); Potassium 3.9 mmol/L (3.5-5.1); Total Protein 8.1 g/dL (5.7-8.2)
[2025-03-22 07:06] LABS: Albumin 4.8 g/dL (3.2-4.8)
[2025-03-22 07:07] LABS: Carbon Dioxide 19 mmol/L (20-31); Glucose 196 mg/dL (74-106); Sodium 135 mmol/L (136-145)
[2025-03-22] MEDS: SOD CHL 0.9%/ KCL 20MEQ 1,000 ML IV ONE (08:32)
[2025-03-22 10:10] LABS: Hepatitis B Surface Antigen Negative (Negative)
[2025-03-22 10:30] LABS: Hepatitis C Antibody Negative (Negative)
--- NOTE | 2025-03-22 10:37 | DVHPN2 ---
Subjective Patient reporting having sore throat, requesting liquid diet. Reviewed: Care Plan, H&P, Labs, Medications Changes from previous H/P or p: No Changes General: Per HPI Eyes: No Pain, No Vision change, No Conjunctivae inflammation, No Eyelid inflammation, No Other, No Redness ENT: Throat pain Respiratory: No Cough, No Dry, No Shortness of breath, No SOB with excertion, No Wheezing, No Hemoptysis, No Pleuritic Pain, No Sputum, No Other Gastrointestinal: Nausea, Vomiting, Abdominal Pain, Diarrhea Musculoskeletal: No other, No neck pain, No shoulder pain, No arm pain, No back pain, No hand pain, No leg pain, No foot pain Objective Vitals Vital Signs Date Time Temp Pulse Resp B/P (MAP) Pulse Ox O2 Delivery O2 Flow Rate FiO2 03/22/25 09:00 98.0 87 16 115/77 (90) 98 98.0 03/22/25 08:00 Room Air* 0 21 Intake/Output Intake and Output 03/22/25 07:00 Intake Total 600 ml Balance 600 ml Intake IV Total 600 ml # Voids 3 General Appearance: Alert, Oriented X3, Cooperative, mild distress HEENT: Atraumatic, PERRLA Cardiovascular: Normal S1, Normal S2 Neuro: Normal gait, Normal speech, Cranial nerves 3-12 NL Skin: Dry, Intact Psych/Mental Status: Mental status NL, Mood NL Medications Current Medications Medications Dose Ordered Sig/Mariela Route Start Time Stop Time Status Last Admin Dose Admin Insulin Glargine 15 units DAILY SC 03/21/25 10:00 03/21/25 09:00 15 UNITS Nitroglycerin 0.4 mg Q5MINP PRN SL 03/20/25 16:15 Morphine Sulfate 2 mg Q30M PRN IV 03/20/25 16:15 Morphine Sulfate 1 mg Q4HPRN PRN IV 03/20/25 16:15 03/21/25 10:29 1 MG Acetaminophen/ Hydrocodone Bitart 1 tab Q6HPRN PRN PO 03/20/25 16:15 03/22/25 09:01 1 TAB Acetaminophen 500 mg Q8HP PRN PO 03/20/25 16:15 03/22/25 06:30 500 MG Ondansetron HCl 4 mg Q4HPRN PRN IV 03/21/25 08:30 03/22/25 09:01 4 MG Metoclopramide HCl 10 mg Q6HPRN PRN IV 03/21/25 07:15 03/21/25 10:28 10 MG Insulin Human Regular ACHS SC 03/22/25 07:00 03/22/25 06:32 3 UNITS Dextrose 50 ml UD PRN IV 03/22/25 05:30 Diagnostic Test (Pha) 1 strip ACHS 03/22/25 07:00 03/22/25 06:34 1 STRIP Throat Lozenges 1 clair Q2HP PRN MT 03/22/25 09:15 Laboratory Results Laboratory Tests 03/22/25 05:42 Chemistry Test 03/21/25 13:07 03/22/25 05:42 Calcium Level 10.3 mg/dL (8.7-10.4) 9.7 mg/dL (8.7-10.4) Albumin 4.8 g/dL (3.2-4.8) Total Protein 8.1 g/dL (5.7-8.2) LFT Test 03/22/25 05:42 Alanine Aminotransferase (ALT) 34 U/L (7-40) Alkaline Phosphatase 85 U/L (46-116) Aspartate Amino Transferase (AST) 28 U/L (13-40) Total Bilirubin 1.0 mg/dL (0.2-1.0) Urinalysis Test 03/20/25 11:05 Urine Color Light-yellow (Yellow) Urine Clarity Clear (Clear) Urine pH 5.5 (5.0-9.0) Urine Specific [place] 1.026 (1.001-1.035) Urine Protein 1+ (Negative) H Urine Ketones 4+ (Negative) H Urine Blood 2+ /uL (Negative) H Urine Nitrite Negative (Negative) Urine Bilirubin Negative (Negative) Urine Urobilinogen Normal mg/dL (Negative) Urine Leukocyte Esterase Negative /uL (Negative) Urine RBC 1 /hpf (0 - 3) Urine Microscopic WBC 1 /HPF (0-3) Urine Squamous Epithelial Cells Few /hpf (<5) Urine Bacteria None seen /hpf (None Seen) Urine Hyaline Casts Few /lpf (0 - 2) Urine Glucose 4+ mg/dL (Normal) H Labs and/or images reviewed: Labs reviewed by me, Image(s) reviewed by me Assessment/Plan Assessment/Plan Impression: -diabetic ketoacidosis -acute pancreatitis -acute kidney injury, vasomotor nephropathy -nicotine dependence -alcoholism Plan: Events: Patient reporting difficulty swallowing. Anion gap reopened. Blood sugars controlled. -change IV fluids to normal saline with potassium chloride -continue insulin drip per protocol -clear liquid diet -pain management -antiemetics -UDS pending -repeat labs in a.m., assess for DC -education given to the patient regarding diabetes mellitus. Patient states that he does not go see his PCP. Only takes metformin. Does not check his blood sugars. Total time spent with patient discussing and formulating plan of care: 35 minutes. This medical document was created using an electronic medical record system with [employer] dictation system. Although this document has been carefully reviewed, there may still be some phonetic and typographical errors. These areas are purely typographical due to imperfections of the software programs, and do not reflect any compromise in the patient's medical care. Plan discussed with: Patient, Other (RN) My Orders Orders - PATRICIA HARRY NP Procedure Category Date Status Time Transfer Orders XFER 03/21/25 Transmitted 14:09 * Behavioral Sciences Department Chair CONS 03/22/25 Transmitted Consult 05:24 Basic Metabolic Panel LAB 03/22/25 Logged 13:00 Sod Chl 0.9%/ Kcl PHA 03/22/25 In Process 20meq 08:15 Clear Liq Diet DIET 03/22/25 Transmitted Breakfast Throat Lozenges PHA 03/22/25 In Process (Cepastat Lozenges) 09:15 Date of Service: March 22, 2025 Billing Provider: PATRICIA HARRY NP Common Visit Codes: [id number] INP/OBS CARE(HIGH) PATRICIA HARRY NP March 22, 2025 10:37
[2025-03-22] MEDS ORDERED: BLOO1KIT60 XX (10:40)
[2025-03-22] MEDS ORDERED: LANC-347 XX (10:40)
[2025-03-22] MEDS ORDERED: INSU1INJ19 SC (10:40)
[2025-03-22 13:32] LABS: Chloride 101 mmol/L (98-107)
[2025-03-22 13:33] LABS: Anion Gap 12 (5-15); Carbon Dioxide 22 mmol/L (20-31)
[2025-03-22 13:38] LABS: BUN/Creatinine Ratio 10.6 (10.0-20.0); Blood Urea Nitrogen 13 mg/dL (9-23); Calcium 10.7 mg/dL (8.7-10.4); Glucose 163 mg/dL (74-106); Potassium 3.5 mmol/L (3.5-5.1); Sodium 135 mmol/L (136-145)
[2025-03-22] MEDS: THROAT LOZENGES(CEPASTAT) MT PRN (13:57)
[2025-03-23 05:00] VITALS: BP 116/87; PULSE 76; RESP 18; TEMP 97.4; O2SAT 99
[2025-03-23] MEDS ORDERED: ACCU-CHEK COMFORT CURVE STRIP VI SCH (07:00)
[2025-03-23 08:00] VITALS: PULSE 76; RESP 18; O2SAT 99
[2025-03-23 08:20] VITALS: BP 113/76; PULSE 74; RESP 18; TEMP 98.2; O2SAT 99
[2025-03-23] MEDS ORDERED: [UNRECOGNIZED DRUG - CODE] MT (10:43)
[2025-03-23] MEDS ORDERED: METF-370 PO (10:43)
--- NOTE | 2025-03-23 11:13 | DVHDS2 ---
Discharge Summary Date of Admission March 20, 2025 at 16:06 Date of Discharge: March 23, 2025 Admitting Diagnosis Diabetic ketoacidosis Labs/Diagnostic Data: Laboratory Results Test 03/23/25 06:05 03/22/25 13:04 03/22/25 05:42 03/21/25 05:08 POC Glucose 134 mg/dl (70-106) Sodium Level 135 mmol/L (136-145) Potassium Level 3.5 mmol/L (3.5-5.1) Chloride Level 101 mmol/L (98-107) Carbon Dioxide Level 22 mmol/L (20-31) Anion Gap 12 (5-15) Blood Urea Nitrogen 13 mg/dL (9-23) Creatinine 1.23 mg/dL (0.700-1.30) Glomerular Filtration Rate Calc 77 mL/min (>90) BUN/Creatinine Ratio 10.6 (10.0-20.0) Serum Glucose 163 mg/dL (74-106) Calcium Level 10.7 mg/dL (8.7-10.4) White Blood Count 4.7 10^3/uL (4.4-10.8) Red Blood Count 4.62 10^6/uL (4.5-5.90) Hemoglobin 14.2 g/dL (13.5-17.5) Hematocrit 41.8 % (41.0-53.0) Mean Corpuscular Volume 90.6 fL (80.0-100.0) Mean Corpuscular Hemoglobin 30.8 pg (28.0-32.0) Mean Corpuscular Hemoglobin Concent 34.0 g/dL (32.0-36.0) Red Cell Distribution Width 15.0 % (11.8-14.3) Platelet Count 162 10^3/uL (140-450) Mean Platelet Volume 9.0 fL (6.9-10.8) Neutrophils (%) (Auto) 58.8 % (37.0-80.0) Lymphocytes (%) (Auto) 28.9 % (10.0-50.0) Monocytes (%) (Auto) 11.6 % (0.0-12.0) Eosinophils (%) (Auto) 0.4 % (0.0-7.0) Basophils (%) (Auto) 0.3 % (0.0-2.0) Neutrophils # (Auto) 2.8 10 ^3/uL (1.6-8.6) Lymphocytes # (Auto) 1.4 10 ^3/uL (0.4-5.4) Monocytes # (Auto) 0.6 10 ^3/uL (0-1.3) Eosinophils # (Auto) 0 10 ^3/uL (0-0.8) Basophils # (Auto) 0 10 ^3/uL (0-0.2) Nucleated Red Blood Cells 0.1 % Total Bilirubin 1.0 mg/dL (0.2-1.0) Aspartate Amino Transferase (AST) 28 U/L (13-40) Alanine Aminotransferase (ALT) 34 U/L (7-40) Alkaline Phosphatase 85 U/L (46-116) Total Protein 8.1 g/dL (5.7-8.2) Albumin 4.8 g/dL (3.2-4.8) Hepatitis B Surface Antigen Negative (Negative) Hepatitis C Antibody Negative (Negative) Hemoglobin A1c 11.0 % A1C (<5.7) Triglycerides Level 175 mg/dL (< 150) Cholesterol Level 272 mg/dL (< 200) LDL Cholesterol 202 mg/dL (< 100) HDL Cholesterol 44 mg/dL (40-59) Lipase 75 U/L (12-53) Test 03/20/25 11:05 Urine Color Light-yellow (Yellow) Urine Clarity Clear (Clear) Urine pH 5.5 (5.0-9.0) Urine Specific [place] 1.026 (1.001-1.035) Urine Protein 1+ (Negative) Urine Ketones 4+ (Negative) Urine Blood 2+ /uL (Negative) Urine Nitrite Negative (Negative) Urine Bilirubin Negative (Negative) Urine Urobilinogen Normal mg/dL (Negative) Urine Leukocyte Esterase Negative /uL (Negative) Urine RBC 1 /hpf (0 - 3) Urine Microscopic WBC 1 /HPF (0-3) Urine Squamous Epithelial Cells Few /hpf (<5) Urine Bacteria None seen /hpf (None Seen) Urine Hyaline Casts Few /lpf (0 - 2) Urine Glucose 4+ mg/dL (Normal) Urine Opiates Screen Neg (NEGATIVE) Urine Fentanyl Screen Neg (NEGATIVE) Urine Barbiturates Screen Neg (NEGATIVE) Urine Phencyclidine Screen Neg (NEGATIVE) Urine Amphetamines Screen Neg (NEGATIVE) Urine Benzodiazepines Screen Neg (NEGATIVE) Urine Cocaine Screen Neg (NEGATIVE) Urine Cannabinoids Screen Neg (NEGATIVE) Other Laboratory Tests 03/22/25 13:04 03/22/25 05:42 Brief Hx & Hospital Course: History of Present Illness The patient has a 39-year-old male presenting to the emergency room with worsening nausea and vomiting, abdominal pain, inability to tolerate oral intake, generalized weakness. Upon arrival to the hospital the patient was found to be severely tachycardic, in addition to having severe hyperglycemia. Patient reports that he has not been able to hold fluid down for the past several days. Patient was notified and CT scan findings of pancreatitis, for which the patient does report having heavy alcohol intake approximately four days ago, for which he does on occasion. Patient also reports not being compliant with his diabetic medications. Other significant history includes nicotine dependence with vaping, occasional marijuana use, as well as reported alcoholism. Course of hospitalization: Patient is hemodynamics improved with appropriate IV hydration. Patient was given electrolyte replete. Insulin drip has been titrated off with the patient's blood sugar controlled with long-acting insulin as well as sliding scale. Patient has oral intake has also improved, with the patient now able to tolerate full liquid diet. Discussion was made with the patient's diabetic history, for which the patient states he has been noncompliant and does not have Accu-Chek machine, does not see a PCP. Patient will be provide glucose monitor, lancets, as well as prescription for Basaglar 15 units q.h.s. as well as continuation of the patient's home medication of metformin 500 mg p.o. b.i.d.. Patient was instructed to obtain a PCP and follow up with them, as well as visit with our discharge Clinic in one week. Patient is agreeable to this discharge plan. All questions answered. Physical examination General: Alert and Oriented x3. No acute distress. Well-nourished. Eyes: EOMI. Anicteric. HENT: Moist mucous membranes. Lungs: Clear to auscultation bilaterally. No accessory muscle use. Cardiovascular: Regular rate and rhythm. No murmur. No JVD. Abdomen: Soft, non-tender and non-distended. No palpable masses. Extremities: No edema. Non-tender. Skin: No rashes or lesions. Warm. Neurologic: No focal neurological deficits. CN II-XII grossly intact, but not individually tested. Psychiatric: Cooperative. Appropriate mood and affect. Total time spent with patient discussing and formulating plan of care: 35 minutes. This medical document was created using an electronic medical record system with [employer] dictation system. Although this document has been carefully reviewed, there may still be some phonetic and typographical errors. These areas are purely typographical due to imperfections of the software programs, and do not reflect any compromise in the patient's medical care. Condition at Discharge: Fair Final Diagnosis/Problems List DKA Secondary diagnosis: -diabetic ketoacidosis -acute pancreatitis -acute kidney injury, vasomotor nephropathy -nicotine dependence -alcoholism Discharge Disposition: Home Discharge Instruct/Medications Diet: Consistent carbohydrate Activity: No Restrictions, As Tolerated Follow Up/Referral: DC clinic in 1 week Establish PCP Medications: Metformin 500mg po bid Basaglar 15 units qhs FSBS bid 36 Discharge Statement: "Patient was advised to return to the ER or call 911 if any headaches, dizziness, shortness of breath, chest pain, abdominal pain, bleeding, fevers, or worsening of medical condition. Patient was counseled about treatment plan, medications, possible side effects, patient�verbalized understanding. All questions were answered to the best of my ability. This discharge took greater then 30 minutes in planning, reviewing documentation, counseling the patient, and discussing with other team members." ASSESSMENT ASSESSMENT Assessment DKA Date of Service: March 23, 2025 Billing Provider: PATRICIA HARRY NP Common Visit Codes: [id number] DISCH DAY >30min PATRICIA HARRY NP March 23, 2025 11:13
[2025-03-23 12:14] VITALS: BP 128/81; PULSE 79; RESP 20; TEMP 97.7; O2SAT 99
== END 2025-03-23 16:40 | disposition home or self-care (01) | DRG 282 ==
LOC: ER 10:29 → OVERFLOW 16:06 → TELE-CENTR 03-22 03:19 → CENTRAL 03-23 06:01
PROVIDERS: ADMIT Nurse Practitioner Acute Care; ATTEND Nurse Practitioner Acute Care
DX: K85.90 Acute pancreatitis without necrosis or infection, unspecified (principal); N17.0 Acute kidney failure with tubular necrosis; E11.11 Type 2 diabetes mellitus with ketoacidosis with coma; F17.200 Nicotine dependence, unspecified, uncomplicated; R00.0 Tachycardia, unspecified; F10.10 Alcohol abuse, uncomplicated; Y90.9 Presence of alcohol in blood, level not specified; F12.90 Cannabis use, unspecified, uncomplicated; Z91.199 Patient's noncompliance with other medical treatment and regimen due to unspecified reason; Z79.84 Long term (current) use of oral hypoglycemic drugs
CPT/HCPCS: 36415; 74176; 80048; 80053; 80061; 80307; 81001; 82962; 83036; 83690; 85025; 86803; 87340; 96361; 96374; 96375; 99291; G0378; J1815; J2405; J2470

== ENCOUNTER 2025-03-31 16:16 | Inpatient (IN) | payer MEDICAID ==
[~2025-03-31] VITALS: Ht 170.2 cm; Wt 80.8 kg
[2025-03-31] MEDS: POTASSIUM CHL 20MEQ/100ML 100 ML IV ONE (00:57)
[~2025-03-31 16:16] MED LIST: BLOO1KIT60 XX; INSU1INJ19 SC; LANC-347 XX; METF-370 PO; [UNRECOGNIZED DRUG - CODE] MT
[2025-03-31] MEDS: SODIUM CHLORIDE 0.9% 1,000 ML IV ONE ×3 (16:36→17:30)
--- NOTE | 2025-03-31 16:42 | ED.PDOC ---
History of Present Illness HPI Comments 39-year-old male BIBA with prior medical history of pancreatitis, diabetes, hypertension; surgical history of cholecystectomy, cyst removal in the chief complaint nausea and vomiting. EMS report on the patient having a blood sugar on scene of 219, and recently being in the ER of [facility], for DKA was sent home with insulin but was not given needles. Patient was given 200 mL of sodium chloride en route. Patient notes on having epigastric pain with nausea and vomiting. Denies chills, fever, /D, SOB, CP. No other associated symptoms, modifiers, recent injuries or sick contacts present at this time. Chief Complaint: Nausea/Vomiting Time Seen by MD: 16:40 Reviewed Notes: Nurses Notes, Global Technical Writer Notes, Medications, Allergies Allergies: Coded Allergies: NO KNOWN ALLERGIES (Unverified , 03/20/25) Home Meds Active Scripts Dyclonine-Glycerin (Cepacol Sore Throat [place]) 1 Ml Spr, 1 ML MT Q4HPRN PRN for 5 Days, SPRAY Prov:PATRICIA HARRY NP 03/23/25 Metformin Hydrochloride (Metformin Hcl) 500 Mg Tab, 500 MG PO BID for 30 Days, #60 TAB 2 Refills Prov:PATRICIA HARRY NP 03/23/25 Insulin Glargine (Basaglar Kwikpen) 100 Unit/Ml Inj, 15 UNIT SC HS for 30 Days, #10 INJ Prov:PATRICIA HARRY NP 03/22/25 Lancets (Freestyle Lancets) Lancets Mis, BOX XX BID, #1 Prov:PATRICIA HARRY NP 03/22/25 Blood Glucose Monitoring Suppl (D-Care Glucometer Kit/Glu W/Device) 1 Kit Kit, KIT XX, #1 Prov:PATRICIA HARRY NP 03/22/25 Information Source: Patient, Emergency Med Personnel Mode of Arrival: EMS Severity: Moderate Timing: Hours Duration: Since onset, Hours Prehospital treatment: None Past Medical History PAST MEDICAL HISTORY: DM, HTN Past Medical History (Other): Pancreatitis Surgical History: Cholecystectomy Surgical History (Other): Cyst removal in the epigastric area Family History Family History: Reviewed,noncontributory to illness, Unknown Social History Smoker: Unknown Alcohol: Unknown Drugs: Unknown Lives In: Home Constitutional: denies: chills, diaphoresis, fatigue, fever, malaise, sweats, weakness, others EENTM: denies: blurred vision, double vision, ear bleeding, ear discharge, ear drainage, ear pain, ear ringing, eye pain, eye redness, hearing loss, mouth pain, mouth swelling, nasal discharge, nose bleeding, nose congestion, nose pain, photophobia, tearing, throat pain, throat swelling, voice changes, others Respiratory: denies: cough, hemoptysis, orthopnea, SOB at rest, shortness of breath, SOB with excertion, stridor, wheezing, others Cardiovascular: denies: chest pain, dizzy spells, diaphoresis, Dyspnea on exertion, edema, irregular heart beat, left arm pain, lightheadedness, palpitations, PND, syncope, others Gastrointestinal: reports: abdominal pain, nausea, vomiting, others (High blood sugar); denies: abdomen distended, blood streaked bowels, constipated, diarrhea, dysphagia, difficulty swallowing, hematemesis, melena, poor appetite, poor fluid intake, rectal bleeding Genitourinary: denies: burning, dysuria, flank pain, frequency, hematuria, incontinence, penile discharge, penile sore, pain, testicle pain, testicle swelling, urgency, others Neurological: denies: dizziness, fainting, headache, left sided numbness, left sided weakness, numbness, paresthesia, pre-existing deficit, right sided numbness, right sided weakness, seizure, speech problems, tingling, tremors, weakness, others Musculoskeletal: denies: back pain, gout, joint pain, joint swelling, muscle pain, muscle stiffness, neck pain, others Integumetry: denies: bruises, change in color, change in hair/nails, dryness, laceration, lesions, lumps, rash, wounds, others Allergic/Immunocompromised: denies: Difficulty Healing, Frequent Infections, Hives, Itching, others Hematologic/Lymphatic: denies: anemia, blood clots, easy bleeding, easy bruisi ng, swollen glands, others Endocrine: denies: excessive hunger, excessive sweating, excessive thirst, exce ssive urination, flushing, intolerance to cold, intolerance to heat, unexplained weight gain, unexplained weight loss, others Psychiatric: denies: anxiety, bipolar disorder, depression, hopeless, panic disorder, schizophrenia, sleepless, suicidal, others All Other Systems: Reviewed and Negative Physical Exam General Appearance: No Apparent Distress, Normal HEENT: NOT DONE Neck: NOT DONE Respiratory: NOT DONE Cardiovascular: NOT DONE Breast Exam: Deferred Gastrointestinal: NOT DONE Genitalia: Deferred Pelvic: Deferred Rectal: Deferred Extremities: NOT DONE Musculoskeletal : Apperance: Normal Neurologic: Alert, NOT DONE Cerebellar Function: NOT DONE Reflexes: NOT DONE Skin: Normal Color Lymphatic: NOT DONE Was a procedure done? Was a procedure done?: No Differential Dx Considerations may include: DKA, uncontrolled diabetes, gastroenteritis X-Ray, Labs, Meds, VS Vital Signs Date Time Temp Pulse Resp B/P (MAP) Pulse Ox O2 Delivery O2 Flow Rate FiO2 03/31/25 17:21 125 17 98 Room Air* 0 21 03/31/25 16:44 123 18 156/91 (112) 98 03/31/25 16:43 129 20 156/91 03/31/25 16:27 98.1 137 20 162/95 (117) 97 98.1 03/31/25 16:22 129 Lab Test 03/31/25 16:41 03/31/25 16:40 Range/Units POC Glucose 244 H 70-106 mg/dl White Blood Count 11.3 H 4.4-10.8 10^3/uL Red Blood Count 4.50 4.5-5.90 10^6/uL Hemoglobin 13.7 13.5-17.5 g/dL Hematocrit 40.9 L 41.0-53.0 % Mean Corpuscular Volume 90.9 80.0-100.0 fL Mean Corpuscular Hemoglobin 30.5 28.0-32.0 pg Mean Corpuscular Hemoglobin Concent 33.6 32.0-36.0 g/dL Red Cell Distribution Width 15.5 H 11.8-14.3 % Platelet Count 355 140-450 10^3/uL Mean Platelet Volume 8.5 6.9-10.8 fL Neutrophils (%) (Auto) 88.0 H 37.0-80.0 % Lymphocytes (%) (Auto) 8.9 L 10.0-50.0 % Monocytes (%) (Auto) 2.6 0.0-12.0 % Eosinophils (%) (Auto) 0.0 0.0-7.0 % Basophils (%) (Auto) 0.5 0.0-2.0 % Neutrophils # (Auto) 10.0 H 1.6-8.6 10 ^3/uL Lymphocytes # (Auto) 1.0 0.4-5.4 10 ^3/uL Monocytes # (Auto) 0.3 0-1.3 10 ^3/uL Eosinophils # (Auto) 0 0-0.8 10 ^3/uL Basophils # (Auto) 0.1 0-0.2 10 ^3/uL Nucleated Red Blood Cells 0.0 % Sodium Level 139 136-145 mmol/L Potassium Level 3.2 L 3.5-5.1 mmol/L Chloride Level 99 98-107 mmol/L Carbon Dioxide Level 14 L 20-31 mmol/L Anion Gap 26 H 5-15 Blood Urea Nitrogen 6 L 9-23 mg/dL Creatinine 0.87 0.700-1.30 mg/dL Glomerular Filtration Rate Calc 113 >90 mL/min BUN/Creatinine Ratio 6.9 L 10.0-20.0 Serum Glucose 240 H 74-106 mg/dL Lactic Acid Level 7.7 *H 0.4-2.0 mmol/L Calcium Level 9.4 8.7-10.4 mg/dL Total Bilirubin 1.0 0.2-1.0 mg/dL Aspartate Amino Transferase (AST) 39 13-40 U/L Alanine Aminotransferase (ALT) 83 H 7-40 U/L Alkaline Phosphatase 115 46-116 U/L Total Protein 8.5 H 5.7-8.2 g/dL Albumin 5.0 H 3.2-4.8 g/dL Lipase 33 12-53 U/L Current Medications Medications (Trade) Dose Ordered Sig/Mariela Route Start Time Stop Time Status Last Admin Sodium Chloride 1,000 ml @ 1,000 mls/hr Q1H ONCE IV 03/31/25 16:30 03/31/25 17:29 DC 03/31/25 16:36 Ondansetron HCl (Zofran) 4 mg ONCE ONCE IV 03/31/25 16:30 03/31/25 16:31 DC 03/31/25 16:43 Morphine Sulfate 4 mg ONCE ONCE IV 03/31/25 16:30 03/31/25 16:31 DC 03/31/25 16:43 Time of 1ST Reevaluation: 17:10 Reevaluation 1ST: Unchanged Patient Education/Counseling: Diagnosis, Treatment, Prognosis Family Education/Counseling: No Family Present Sepsis Sepsis Reasesment Focused Exam Orders: Laboratory Tests 03/31/25 16:40: Lactic Acid Level 7.7 Departure 1 Departure Time of Disposition: 17:51 (Who presents for DKA and intractable nausea vomiting and abdominal pain. We will admit patient for further workup) Impression: Primary Impression: DKA, type 2, not at goal Additional Impressions: Intractable abdominal pain Projectile vomiting Qualified Codes: R11.12 - Projectile vomiting Disposition: ADMITTED INPATIENT Admit to: ICU Condition: Critical Critical Care Note Critical Care Time?: Yes Critical care comment: DKA Authorized and Performed by: Deanne Ralph MD Total critical care time: Approximately 48 minutes Due to a high probability of clinically significant, life threatening deterioration, the patient required my highest level of preparedness to in tervene emergently and I personally spent this critical care time directly and personally managing the patient. This critical care time included obtaining a history; examining the patient; pulse oximetry; ordering and review of studies; arranging urgent treatment with development of a management plan; evaluation of patient's response to treatment; frequent reassessment; and, discussions with other providers. This critical care time was performed to assess and manage the high probability of imminent, life-threatening deterioration that could result in multi-organ failure. It was exclusive of separately billable procedures and treating other patients and teaching time. Please see my other sections and the rest of the note for further information on patient assessment and treatment. Stability Stability form required: No I personally scribed for DEANNE RALPH MD ([email or web address]) on 03/31/25 at 16:42. Electronically submitted by Trevor Johnson ([email or web address]). DEANNE RALPH MD March 31, 2025 16:42
[2025-03-31] MEDS: MORPHINE SULFATE 4 MG/ML SYR/VIAL IV ONE (16:43)
[2025-03-31] MEDS: ONDANSETRON HCL 4 MG/2 ML VIAL IV ONE (16:43)
[2025-03-31 17:05] LABS: Basophils # (auto) 0.1 10 ^3/uL (0-0.2); Basophils % (auto) 0.5 % (0.0-2.0); Eosinophils # (auto) 0 10 ^3/uL (0-0.8); Hematocrit 40.9 % (41.0-53.0); Hemoglobin 13.7 g/dL (13.5-17.5); Lymphocytes % (auto) 8.9 % (10.0-50.0); Mean Corpuscular Hemoglobin 30.5 pg (28.0-32.0); Mean Corpuscular Hgb Conc. 33.6 g/dL (32.0-36.0); Mean Corpuscular Volume 90.9 fL (80.0-100.0); Monocytes # (auto) 0.3 10 ^3/uL (0-1.3); Monocytes % (auto) 2.6 % (0.0-12.0); Platelet Count (auto) 355 10^3/uL (140-450); Red Cell Distribution Width 15.5 % (11.8-14.3); White Blood Cell 11.3 10^3/uL (4.4-10.8)
[2025-03-31 17:21] VITALS: PULSE 125; RESP 17; O2SAT 98
[2025-03-31 17:22] LABS: Alkaline Phosphatase 115 U/L (46-116); Anion Gap 26 (5-15); Aspartate Aminotransferase 39 U/L (13-40); BUN/Creatinine Ratio 6.9 (10.0-20.0); Calcium 9.4 mg/dL (8.7-10.4); Chloride 99 mmol/L (98-107); Lipase 33 U/L (12-53); Sodium 139 mmol/L (136-145)
[2025-03-31 17:23] LABS: Lactic Acid w/Reflex 7.7 mmol/L (0.4-2.0)
[2025-03-31 17:33] LABS: Alanine Aminotransferase 83 U/L (7-40); Blood Urea Nitrogen 6 mg/dL (9-23); Carbon Dioxide 14 mmol/L (20-31); Glucose 240 mg/dL (74-106); Potassium 3.2 mmol/L (3.5-5.1); Total Protein 8.5 g/dL (5.7-8.2)
[2025-03-31] MEDS ORDERED: DEXTROSE (50%) 50ML SYRG IV PRN ×2 (18:00→19:45)
[2025-03-31] MEDS: ACCU-CHEK COMFORT CURVE STRIP VI SCH ×2 (18:30→21:11)
[2025-03-31 18:37] LABS: Magnesium 1.5 mg/dL (1.6-2.6)
[2025-03-31 18:37] LABS: Chloride 103 mmol/L (98-107); Potassium 3.6 mmol/L (3.5-5.1); Sodium 139 mmol/L (136-145)
[2025-03-31 18:38] LABS: Anion Gap 21 (5-15); Calcium 9.1 mg/dL (8.7-10.4)
[2025-03-31 18:38] LABS: Phosphorus 2.6 mg/dL (2.4-5.1)
[2025-03-31 18:41] LABS: Urine Bacteria None Seen /hpf (None Seen)
[2025-03-31 18:42] LABS: Base Excess -5.3 mmol/L (-2.0-3.0)
[2025-03-31 18:43] LABS: BUN/Creatinine Ratio 6.6 (10.0-20.0)
[2025-03-31 18:44] LABS: Blood Urea Nitrogen 5 mg/dL (9-23); Carbon Dioxide 15 mmol/L (20-31); Glucose 215 mg/dL (74-106)
[2025-03-31] MEDS: INSULIN LANTUS (GLARGINE) 1 /0.01ml (100units/ml) SC ONE ×2 (18:45→19:45)
[2025-03-31 18:52] LABS: Urine Blood Negative /uL (Negative); Urine Clarity Clear (Clear); Urine Color Light-Yellow (Yellow); Urine Protein, UAD TRACE (Negative); Urine Specific Gravity 1.023 (1.001-1.035); Urine Squamous Epithelial Cell None Seen /hpf (<5); Urine Urobilinogen Normal (Negative); Urine WBC < 1 /HPF (0-3); Urine pH 5.5 (5.0-9.0)
[2025-03-31] MEDS: PIPERACILLIN-TAZO 4.5GM 100 ML IV ONE (18:58)
[2025-03-31 19:25] VITALS: PULSE 115; RESP 17; O2SAT 98
[2025-03-31] MEDS: D5W/SOD CHLO 0.9% 1,000 ML IV ONE (19:45)
[2025-03-31] MEDS: INSULIN DRIP 100 UNIT/100ML 100 ML IV SCH ×2 (19:45→20:00)
--- NOTE | 2025-03-31 19:58 | DVHHP2 ---
Admitting Diagnosis: Nausea and vomiting History of Present Illness 39-year-old male FARHAN with prior medical history of pancreatitis, diabetes, hypertension; surgical history of cholecystectomy, cyst removal in the chief complaint nausea and vomiting. EMS report on the patient having a blood sugar on scene of 219, and recently being in the ER of [facility], [facility], for DKA was sent home with insulin but was not given needles. Patient was given 200 mL of sodium chloride en route. Patient notes on having epigastric pain with nausea and vomiting. Denies chills, fever, /D, SOB, CP. No other associated symptoms, modifiers, recent injuries or sick contacts present at this time. PAST MEDICAL HISTORY: DM, HTN Past Medical History (Other): Pancreatitis Surgical History: Cholecystectomy Surgical History (Other): Cyst removal in the epigastric area Family History Family History: Reviewed,noncontributory to illness, Unknown Social History Smoker: Unknown Alcohol: Unknown Drugs: Unknown Lives In: Home Allergies: Coded Allergies: NO KNOWN ALLERGIES (Unverified , 03/20/25) Home Meds Active Scripts Dyclonine-Glycerin (Cepacol Sore Throat [place]) 1 Ml Spr, 1 ML MT Q4HPRN PRN for 5 Days, SPRAY Prov:PATRICIA HARRY NP 03/23/25 Metformin Hydrochloride (Metformin Hcl) 500 Mg Tab, 500 MG PO BID for 30 Days, #60 TAB 2 Refills Prov:PATRICIA HARRY NP 03/23/25 Insulin Glargine (Basaglar Kwikpen) 100 Unit/Ml Inj, 15 UNIT SC HS for 30 Days, #10 INJ Prov:PATRICIA HARRY NP 03/22/25 Lancets (Freestyle Lancets) Lancets Mis, BOX XX BID, #1 Prov:PATRICIA HARRY NP 03/22/25 Blood Glucose Monitoring Suppl (D-Care Glucometer Kit/Glu W/Device) 1 Kit Kit, KIT XX, #1 Prov:PATRICIA HARRY GRILL CHEF 03/22/25 Current Medications Current Medications Medications (Trade) Dose Ordered Sig/Mariela Route PRN Reason Start Time Stop Time Status Last Admin Sodium Chloride 1,000 ml @ 500 mls/hr Q2H IV 03/31/25 18:00 03/31/25 21:59 Sodium Chloride 1,000 ml @ 250 mls/hr Q4H IV 03/31/25 22:00 03/31/25 23:59 Sodium Chloride 1,000 ml @ 150 mls/hr Q6H40M IV 04/01/25 00:00 Insulin Human (Reg)/Sodium Chloride 100 ml @ 0.5 mls/hr Q24H IV 03/31/25 18:00 Dextrose 50 ml UD PRN IV SEE CURRENT ALGORITHM or SCALE 03/31/25 18:00 Diagnostic Test (Pha) (Accu-Chek Comfort Curve T) 1 strip Q90MIN 03/31/25 18:00 03/31/25 18:30 Insulin Glargine (Lantus) 15 units DAILY SC 04/01/25 10:00 Insulin Human (Reg)/Sodium Chloride 100 ml @ 0.5 mls/hr Q24H IV 03/31/25 19:45 UNV Diagnostic Test (Pha) (Accu-Chek Comfort Curve T) 1 strip Q90MIN 03/31/25 21:00 UNV Dextrose 50 ml PRN PRN IV BG LESS Than 70 AND CALL MD 03/31/25 19:45 UNV Insulin Glargine (Lantus) 15 units DAILY SC 04/01/25 10:00 UNV Sodium Chloride (Saline Lock Ns) 10 ml Q8HR IV 03/31/25 22:00 UNV Metoclopramide HCl (Reglan Injection) 10 mg Q4HP PRN IV NAUSEA / VOMITING 03/31/25 20:00 UNV Docusate Sodium (Colace Capsule) 100 mg BIDPRN PRN PO FOR CONSTIPATION 03/31/25 20:00 UNV Acetaminophen (Tylenol Tablet) 650 mg Q6HP PRN PO PAIN SCALE 1-3 OR TEMP>100.4 03/31/25 20:00 UNV Acetaminophen/ Hydrocodone Bitart ([place] 5/325MG Tab) 1 tab Q4HP PRN PO MODERATE PAIN (4-6 PAIN SCALE) 03/31/25 20:00 UNV Ondansetron HCl (Zofran) 4 mg Q4HP PRN IV NAUSEA / VOMITING 03/31/25 20:00 UNV Enoxaparin Sodium (Lovenox) 40 mg DAILY SC 04/01/25 10:00 UNV Vital Signs Vital Signs Date Time Temp Pulse Resp B/P (MAP) Pulse Ox O2 Delivery O2 Flow Rate FiO2 03/31/25 19:11 107 16 96 03/31/25 17:21 Room Air* 0 21 03/31/25 17:00 145/84 (104) 03/31/25 16:27 98.1 98.1 Physical Exam Generally 31 years old male, well nourished well developed. Diaphoretic and M oderate distress HEENT-atraumatic normocephalic Heart-regular rate and rhythm Lungs clear to auscultate bilaterally Abdomen soft nontender nondistended Musculoskeletal-no edema cyanosis Neuro-AO x3, no focal deficits Results Labs Test 03/31/25 18:51 03/31/25 18:37 03/31/25 18:32 03/31/25 18:30 Range/Units Lactic Acid Level 1.9 0.4-2.0 mmol/L POC Glucose 193 H 70-106 mg/dl Blood Gas Specimen Type Arterial Blood Gas Sample Site Right radial Blood Gas Patient Temperature 37.0 Arterial Blood Date Drawn [id number] Arterial Blood pH 7.459 H 7.350-7.450 Arterial Blood Partial Pressure CO2 24.1 L 35.0-48.0 mmHg Arterial Blood Partial Pressure O2 123.8 H 83.0-108.0 mmHg Arterial Blood HCO3 16.7 L 21.0-28.0 mmol/L Arterial Blood Oxygen Saturation 98.5 H 94.0-98.0 % Arterial Blood Base Excess -5.3 L -2.0-3.0 mmol/L Arterial Blood Oxyhemoglobin 97.5 94.0-98.0 % Arterial Blood Carboxyhemoglobin 0.3 L 0.5-1.5 % Arterial Blood Methemoglobin 0.7 0.0-1.5 % Rubén Test Yes Blood Gas Total Hemoglobin 13.30 L 13.5-17.5 g/dL Blood Gas Modality Room air Blood Gas Spontaneous Rate 25 FiO2 % 21.0 Urine Color Light-yellow Yellow Urine Clarity Clear Clear Urine pH 5.5 5.0-9.0 Urine Specific [place] 1.023 1.001-1.035 Urine Protein Trace H Negative Urine Ketones 4+ H Negative Urine Blood Negative Negative /uL Urine Nitrite Negative Negative Urine Bilirubin Negative Negative Urine Urobilinogen Normal Negative mg/dL Urine Leukocyte Esterase Negative Negative /uL Urine RBC 1 0 - 3 /hpf Urine Microscopic WBC < 1 0-3 /HPF Urine Squamous Epithelial Cells None seen <5 /hpf Urine Bacteria None seen None Seen /hpf Urine Glucose 4+ H Normal mg/dL Test 03/31/25 17:55 03/31/25 16:40 Range/Units Sodium Level 139 136-145 mmol/L Potassium Level 3.6 3.5-5.1 mmol/L Chloride Level 103 98-107 mmol/L Carbon Dioxide Level 15 L 20-31 mmol/L Anion Gap 21 H 5-15 Blood Urea Nitrogen 5 L 9-23 mg/dL Creatinine 0.76 0.700-1.30 mg/dL Glomerular Filtration Rate Calc 118 >90 mL/min BUN/Creatinine Ratio 6.6 L 10.0-20.0 Serum Glucose 215 H 74-106 mg/dL Calcium Level 9.1 8.7-10.4 mg/dL White Blood Count 11.3 H 4.4-10.8 10^3/uL Red Blood Count 4.50 4.5-5.90 10^6/uL Hemoglobin 13.7 13.5-17.5 g/dL Hematocrit 40.9 L 41.0-53.0 % Mean Corpuscular Volume 90.9 80.0-100.0 fL Mean Corpuscular Hemoglobin 30.5 28.0-32.0 pg Mean Corpuscular Hemoglobin Concent 33.6 32.0-36.0 g/dL Red Cell Distribution Width 15.5 H 11.8-14.3 % Platelet Count 355 140-450 10^3/uL Mean Platelet Volume 8.5 6.9-10.8 fL Neutrophils (%) (Auto) 88.0 H 37.0-80.0 % Lymphocytes (%) (Auto) 8.9 L 10.0-50.0 % Monocytes (%) (Auto) 2.6 0.0-12.0 % Eosinophils (%) (Auto) 0.0 0.0-7.0 % Basophils (%) (Auto) 0.5 0.0-2.0 % Neutrophils # (Auto) 10.0 H 1.6-8.6 10 ^3/uL Lymphocytes # (Auto) 1.0 0.4-5.4 10 ^3/uL Monocytes # (Auto) 0.3 0-1.3 10 ^3/uL Eosinophils # (Auto) 0 0-0.8 10 ^3/uL Basophils # (Auto) 0.1 0-0.2 10 ^3/uL Nucleated Red Blood Cells 0.0 % Serum Osmolality 302 H 278-298 mOsm/kg Phosphorus Level 2.6 2.4-5.1 mg/dL Magnesium Level 1.5 L 1.6-2.6 mg/dL Total Bilirubin 1.0 0.2-1.0 mg/dL Aspartate Amino Transferase (AST) 39 13-40 U/L Alanine Aminotransferase (ALT) 83 H 7-40 U/L Alkaline Phosphatase 115 46-116 U/L Total Protein 8.5 H 5.7-8.2 g/dL Albumin 5.0 H 3.2-4.8 g/dL Lipase 33 12-53 U/L Beta-Hydroxybutyric Acid 4.085 H < 0.4 mmol/L Primary Diagnosis DKA Severe lactic acidosis Plan Patient glucose level is 200 and trending down Start D5 fluids to 50 cc an hours Insulin drip for DKA . Continue insulin drip until anion gap closes Check A1c Antiemetic Pain control Bowel regimen Full code Lovenox for DVT prophylaxis PPI for GI prophylaxis NPO except ice chips Plan discussed with: Patient Problems List: (1) DKA, type 2, not at goal Status: Acute (2) Intractable abdominal pain Status: Acute (3) Diabetic ketoacidosis Status: Acute Date of Service: March 31, 2025 Billing Provider: DAHLIA CORNELL MD Common Visit Codes: [id number] INP/OBS CARE (HIGH) DAHLIA CORNELL MD March 31, 2025 19:58
[2025-03-31] MEDS: SODIUM CHLORIDE 0.9% 1,000 ML IV SCH ×2 (20:00→22:00)
[2025-03-31] MEDS ORDERED: METOCLOPRAMIDE HCL 5MG/ml INJ 2ml VIAL IV PRN (20:00)
[2025-03-31] MEDS: POTASSIUM EFFERVESENT TAB 25 MEQ PO ONE (20:00)
[2025-03-31 20:41] LABS: Anion Gap 19 (5-15); Aspartate Aminotransferase 33 U/L (13-40); BUN/Creatinine Ratio 6.3 (10.0-20.0); Calcium 9.1 mg/dL (8.7-10.4); Chloride 104 mmol/L (98-107); Sodium 140 mmol/L (136-145)
[2025-03-31 20:43] LABS: Alanine Aminotransferase 82 U/L (7-40); Alkaline Phosphatase 119 U/L (46-116); Blood Urea Nitrogen 5 mg/dL (9-23); Carbon Dioxide 17 mmol/L (20-31); Glucose 202 mg/dL (74-106); Total Protein 8.5 g/dL (5.7-8.2)
[2025-03-31] MEDS: HYDROcodone-ACET 5/325MG TAB PO PRN (21:07)
[2025-03-31] MEDS: ACETAMINOPHEN 325 MG TAB PO PRN (21:07)
[2025-03-31] MEDS: DOCUSATE SOD 100 MG CAP PO PRN (21:08)
[2025-03-31] MEDS: ONDANSETRON HCL 4 MG/2 ML VIAL IV PRN (21:08)
[2025-03-31] MEDS: SODIUM CHLOR 0.9% PF (SALINE LOCK) 10ML VIAL/SYR IV SCH (21:11)
[2025-03-31 21:33] LABS: Lactic Acid w/Reflex 2.8 mmol/L (0.4-2.0)
[2025-03-31] MEDS: HYDROmorphone HCL 2 MG/ML VL/or syr IV ONE (23:07)
[2025-03-31 23:59] LABS: Chloride 105 mmol/L (98-107); Sodium 140 mmol/L (136-145)
[2025-04-01] LABS: Anion Gap 14 (5-15); Carbon Dioxide 21 mmol/L (20-31)
[2025-04-01] MEDS: POTASSIUM CHL 20MEQ/100ML 100 ML IV ONE (00:15)
[2025-04-01 00:17] LABS: BUN/Creatinine Ratio 6.8 (10.0-20.0); Blood Urea Nitrogen < 5 mg/dL (9-23); Calcium 8.5 mg/dL (8.7-10.4); Glucose 129 mg/dL (74-106); Potassium 3.4 mmol/L (3.5-5.1)
[2025-04-01] MEDS: SODIUM CHLORIDE 0.9% 1,000 ML IV SCH (00:28)
[2025-04-01 04:34] LABS: Lactic Acid w/Reflex 2.2 mmol/L (0.4-2.0)
[2025-04-01 05:01] LABS: Basophils # (auto) 0.1 10 ^3/uL (0-0.2); Basophils % (auto) 0.7 % (0.0-2.0); Eosinophils # (auto) 0 10 ^3/uL (0-0.8); Eosinophils % (auto) 0.1 % (0.0-7.0); Hematocrit 40.8 % (41.0-53.0); Hemoglobin 13.6 g/dL (13.5-17.5); Lymphocytes # (auto) 2.1 10 ^3/uL (0.4-5.4); Mean Corpuscular Hemoglobin 30.1 pg (28.0-32.0); Mean Corpuscular Hgb Conc. 33.3 g/dL (32.0-36.0); Mean Corpuscular Volume 90.3 fL (80.0-100.0); Monocytes # (auto) 0.8 10 ^3/uL (0-1.3); Monocytes % (auto) 7.1 % (0.0-12.0); Neutrophils # (auto) 8.6 10 ^3/uL (1.6-8.6); Neutrophils % (auto) 74.1 % (37.0-80.0); Platelet Count (auto) 347 10^3/uL (140-450); Red Blood Cells 4.52 10^6/uL (4.5-5.90); Red Cell Distribution Width 15.5 % (11.8-14.3); White Blood Cell 11.6 10^3/uL (4.4-10.8)
[2025-04-01 05:11] LABS: Chloride 104 mmol/L (98-107); Sodium 139 mmol/L (136-145)
[2025-04-01 05:12] LABS: Anion Gap 15 (5-15); Calcium 8.8 mg/dL (8.7-10.4); Carbon Dioxide 20 mmol/L (20-31)
[2025-04-01 05:19] LABS: BUN/Creatinine Ratio 6.6 (10.0-20.0); Blood Urea Nitrogen < 5 mg/dL (9-23); Glucose 112 mg/dL (74-106)
[2025-04-01] MEDS: SODIUM CHLORIDE 0.9% 500 ML IV ONE (06:15)
[2025-04-01] MEDS ORDERED: DEXTROSE (50%) 50ML SYRG IV PRN (07:30)
[2025-04-01 08:00] VITALS: PULSE 101; RESP 16; O2SAT 99
[2025-04-01 08:39] LABS: Albumin 4.3 g/dL (3.2-4.8); Alkaline Phosphatase 101 U/L (46-116); Anion Gap 14 (5-15); Carbon Dioxide 22 mmol/L (20-31); Chloride 103 mmol/L (98-107); Glucose 76 mg/dL (74-106); Sodium 139 mmol/L (136-145); Total Protein 7.1 g/dL (5.7-8.2)
[2025-04-01] MEDS: SOD CHL 0.45% WITH 20MEQ KCL 1,000 ML IV SCH (08:39)
[2025-04-01 08:40] LABS: Alanine Aminotransferase 70 U/L (7-40); Aspartate Aminotransferase 42 U/L (13-40); BUN/Creatinine Ratio 7.4 (10.0-20.0); Blood Urea Nitrogen < 5 mg/dL (9-23); Calcium 8.6 mg/dL (8.7-10.4); Potassium 2.7 mmol/L (3.5-5.1)
[2025-04-01] MEDS: POTASSIUM CHLORIDE 40 MEQ, LIDOCAINE 1% (LOCAL ANESTH.) 4 ML in SODIUM CHL 0.9% 250 ML IV ONE (09:13)
[2025-04-01] MEDS: INSULIN LANTUS (GLARGINE) 1 /0.01ml (100units/ml) SC SCH (10:00)
[2025-04-01] MEDS ORDERED: INSULIN LANTUS (GLARGINE) 1 /0.01ml (100units/ml) SC SCH (10:00)
[2025-04-01] MEDS: InsuLIN REG 1unit/0.01ml Soln (100units/ml) SC SCH ×2 (11:30→21:22)
[2025-04-01] MEDS: ENOXAPARIN SOD 40 MG/0.4 ML SYRINGE SC SCH (11:47)
[2025-04-01] MEDS: amLODIPine BESYLATE 5 MG TAB PO SCH (11:47)
[2025-04-01] MEDS: ACCU-CHEK COMFORT CURVE STRIP VI SCH (11:52)
[2025-04-01 12:30] VITALS: BP 160/90; PULSE 83; RESP 16; TEMP 98.2; O2SAT 98
[2025-04-01] MEDS: PIPERACILLIN-TAZOB 3.375GM 100 ML IV SCH (12:47)
[2025-04-01 13:18] LABS: Chloride 101 mmol/L (98-107)
[2025-04-01 13:19] LABS: Anion Gap 11 (5-15); Carbon Dioxide 22 mmol/L (20-31)
[2025-04-01 13:24] LABS: Glucose 94 mg/dL (74-106)
[2025-04-01 13:47] LABS: BUN/Creatinine Ratio 8.8 (10.0-20.0); Blood Urea Nitrogen < 5 mg/dL (9-23); Calcium 8.2 mg/dL (8.7-10.4); Potassium 3.2 mmol/L (3.5-5.1); Sodium 134 mmol/L (136-145)
[2025-04-01] MEDS: HYDROmorphone HCL 2 MG/ML VL/or syr IV PRN (15:30)
[2025-04-01 16:30] VITALS: BP 125/74; PULSE 88; RESP 16; TEMP 97.7; O2SAT 96
--- NOTE | 2025-04-01 19:40 | DVHPN2 ---
Subjective in bed doing well Changes from previous H/P or p: No Changes Objective Vitals Vital Signs Date Time Temp Pulse Resp B/P (MAP) Pulse Ox O2 Delivery O2 Flow Rate FiO2 04/01/25 16:30 97.7 88 16 125/74 (91) 96 97.7 04/01/25 12:05 Room Air* 0 21 Intake/Output Intake and Output 04/01/25 07:00 Intake Total 1412.0 ml Balance 1412.0 ml Intake IV Total 1412.0 ml General Appearance: Alert, Oriented X3 Lungs: Clear to auscultation Cardiovascular: Regular rate, Normal S1, Normal S2 Medications Current Medications Medications Dose Ordered Sig/Mariela Route Start Time Stop Time Status Last Admin Dose Admin Insulin Glargine 15 units DAILY SC 04/01/25 10:00 Sodium Chloride 10 ml Q8HR IV 03/31/25 22:00 04/01/25 15:31 10 ML Metoclopramide HCl 10 mg Q4HP PRN IV 03/31/25 20:00 Hold Docusate Sodium 100 mg BIDPRN PRN PO 03/31/25 20:00 03/31/25 21:08 100 MG Acetaminophen 650 mg Q6HP PRN PO 03/31/25 20:00 03/31/25 21:07 650 MG Acetaminophen/ Hydrocodone Bitart 1 tab Q4HP PRN PO 03/31/25 20:00 04/01/25 11:46 1 TAB Ondansetron HCl 4 mg Q4HP PRN IV 03/31/25 20:00 04/01/25 11:46 4 MG Enoxaparin Sodium 40 mg DAILY SC 04/01/25 10:00 04/01/25 11:47 40 MG Diagnostic Test (Pha) 1 strip ACHS 04/01/25 11:30 04/01/25 17:46 1 STRIP Insulin Human Regular HS SC 04/01/25 22:00 Insulin Human Regular AC SC 04/01/25 11:30 Dextrose 50 ml UD PRN IV 04/01/25 07:30 Piperacillin Sod/ Tazobactam Sod 100 ml @ 25 mls/hr Q6HR IV 04/01/25 12:00 04/01/25 17:46 25 MLS/HR Amlodipine Besylate 10 mg DAILY PO 04/01/25 10:00 04/01/25 11:47 10 MG Potassium Chloride/Sodium Chloride 1,000 ml @ 100 mls/hr Q10H IV 04/01/25 08:15 04/01/25 18:46 100 MLS/HR Hydromorphone HCl 0.5 mg Q4HPRN PRN IV 04/01/25 14:15 04/01/25 15:30 0.5 MG Laboratory Results Laboratory Tests 04/01/25 04:47 04/01/25 12:59 Chemistry Test 03/31/25 20:13 03/31/25 23:33 04/01/25 04:47 04/01/25 08:10 Albumin 5.0 g/dL (3.2-4.8) H 4.3 g/dL (3.2-4.8) Calcium Level 9.1 mg/dL (8.7-10.4) 8.5 mg/dL (8.7-10.4) L 8.8 mg/dL (8.7-10.4) 8.6 mg/dL (8.7-10.4) L Total Protein 8.5 g/dL (5.7-8.2) H 7.1 g/dL (5.7-8.2) Test 04/01/25 12:59 Calcium Level 8.2 mg/dL (8.7-10.4) L LFT Test 03/31/25 20:13 04/01/25 08:10 Alanine Aminotransferase (ALT) 82 U/L (7-40) H 70 U/L (7-40) H Alkaline Phosphatase 119 U/L (46-116) H 101 U/L (46-116) Aspartate Amino Transferase (AST) 33 U/L (13-40) 42 U/L (13-40) H Total Bilirubin 1.0 mg/dL (0.2-1.0) 1.0 mg/dL (0.2-1.0) Urinalysis Test 03/31/25 18:30 Urine Color Light-yellow (Yellow) Urine Clarity Clear (Clear) Urine pH 5.5 (5.0-9.0) Urine Specific [place] 1.023 (1.001-1.035) Urine Protein Trace (Negative) H Urine Ketones 4+ (Negative) H Urine Blood Negative /uL (Negative) Urine Nitrite Negative (Negative) Urine Bilirubin Negative (Negative) Urine Urobilinogen Normal mg/dL (Negative) Urine Leukocyte Esterase Negative /uL (Negative) Urine RBC 1 /hpf (0 - 3) Urine Microscopic WBC < 1 /HPF (0-3) Urine Squamous Epithelial Cells None seen /hpf (<5) Urine Bacteria None seen /hpf (None Seen) Urine Glucose 4+ mg/dL (Normal) H Microbiology Microbiology Date/Time Source Procedure Growth Status 03/31/25 18:00 Blood Blood Culture - Preliminary NO GROWTH AFTER 24 HOURS OF INCUBATION. Resulted Assessment/Plan Assessment/Plan DKA Severe lactic acidosis Anion gap closed Will start long acting insulin Diet IVF Plan discussed with: Patient My Orders Orders - APOLINAR VIDAL MD Procedure Category Date Status Time Hydromorphone PHA 04/01/25 In Process Injection (Dilaudid 14:15 * Truck Driver CONS 04/01/25 Transmitted Consult Date of Service: April 01, 2025 Billing Provider: APOLINAR VIDAL MD Common Visit Codes: [id number] INP/OBS CARE(HIGH) APOLINAR VIDAL MD April 01, 2025 19:40
[2025-04-01 20:00] VITALS: PULSE 92
[2025-04-01 21:00] VITALS: BP 124/68; PULSE 86; RESP 19; TEMP 97.7; O2SAT 97
[2025-04-02 05:00] VITALS: BP 130/77; PULSE 82; RESP 19; TEMP 97.7; O2SAT 98
[2025-04-02 08:00] VITALS: PULSE 86
[2025-04-02 08:05] LABS: Basophils # (auto) 0.1 10 ^3/uL (0-0.2); Basophils % (auto) 0.8 % (0.0-2.0); Eosinophils # (auto) 0 10 ^3/uL (0-0.8); Eosinophils % (auto) 0.6 % (0.0-7.0); Hemoglobin 13.2 g/dL (13.5-17.5); Lymphocytes % (auto) 15.2 % (10.0-50.0); Mean Corpuscular Hemoglobin 31.5 pg (28.0-32.0); Mean Corpuscular Hgb Conc. 34.6 g/dL (32.0-36.0); Mean Corpuscular Volume 90.9 fL (80.0-100.0); Monocytes # (auto) 0.2 10 ^3/uL (0-1.3); Monocytes % (auto) 2.9 % (0.0-12.0); Neutrophils # (auto) 5.3 10 ^3/uL (1.6-8.6); Neutrophils % (auto) 80.5 % (37.0-80.0); Platelet Count (auto) 217 10^3/uL (140-450); Red Blood Cells 4.18 10^6/uL (4.5-5.90); Red Cell Distribution Width 15.3 % (11.8-14.3); White Blood Cell 6.6 10^3/uL (4.4-10.8)
[2025-04-02 09:10] VITALS: BP_SYST 116; PULSE 77; RESP 17; TEMP 97.6; O2SAT 96
[2025-04-02] MEDS: METOCLOPRAMIDE HCL 5MG/ml INJ 2ml VIAL IV PRN (10:33)
[2025-04-02 13:32] VITALS: BP 107/64; PULSE 86; RESP 17; TEMP 98.3; O2SAT 99
[2025-04-02 16:53] VITALS: BP 106/67; PULSE 73; RESP 17; TEMP 98.4; O2SAT 98
--- NOTE | 2025-04-02 17:50 | DVHPN2 ---
Subjective He is having nausea and vomiting unable to tolerate any po Changes from previous H/P or p: No Changes Objective Vitals Vital Signs Date Time Temp Pulse Resp B/P (MAP) Pulse Ox O2 Delivery O2 Flow Rate FiO2 04/02/25 17:35 74 18 104/65 04/02/25 16:53 98.4 98 98.4 04/02/25 08:00 Room Air* 0 21 Intake/Output Intake and Output 04/02/25 07:00 Intake Total 1300 ml Output Total 150 ml Balance 1150 ml Intake IV Total 1300 ml Output Urine Total 150 ml # Voids 5 # Bowel Movements 1 General Appearance: Alert, Oriented X3 Lungs: Clear to auscultation Cardiovascular: Regular rate, Normal S1, Normal S2 Medications Current Medications Medications Dose Ordered Sig/Mariela Route Start Time Stop Time Status Last Admin Dose Admin Insulin Glargine 15 units DAILY SC 04/01/25 10:00 04/02/25 10:52 15 UNITS Sodium Chloride 10 ml Q8HR IV 03/31/25 22:00 04/02/25 15:50 10 ML Docusate Sodium 100 mg BIDPRN PRN PO 03/31/25 20:00 03/31/25 21:08 100 MG Acetaminophen 650 mg Q6HP PRN PO 03/31/25 20:00 03/31/25 21:07 650 MG Acetaminophen/ Hydrocodone Bitart 1 tab Q4HP PRN PO 03/31/25 20:00 04/02/25 15:51 1 TAB Ondansetron HCl 4 mg Q4HP PRN IV 03/31/25 20:00 Hold 04/02/25 06:59 4 MG Enoxaparin Sodium 40 mg DAILY SC 04/01/25 10:00 04/02/25 10:34 40 MG Diagnostic Test (Pha) 1 strip ACHS 04/01/25 11:30 04/02/25 17:34 1 STRIP Insulin Human Regular HS SC 04/01/25 22:00 04/01/25 21:22 2 UNITS Insulin Human Regular AC SC 04/01/25 11:30 Dextrose 50 ml UD PRN IV 04/01/25 07:30 Piperacillin Sod/ Tazobactam Sod 100 ml @ 25 mls/hr Q6HR IV 04/01/25 12:00 04/02/25 17:34 25 MLS/HR Amlodipine Besylate 10 mg DAILY PO 04/01/25 10:00 04/01/25 11:47 10 MG Potassium Chloride/Sodium Chloride 1,000 ml @ 100 mls/hr Q10H IV 04/01/25 08:15 04/02/25 15:50 100 MLS/HR Hydromorphone HCl 0.5 mg Q4HPRN PRN IV 04/01/25 14:15 04/02/25 17:35 0.5 MG Metoclopramide HCl 10 mg Q6HPRN PRN IV 04/02/25 08:15 04/02/25 17:34 10 MG Laboratory Results Laboratory Tests 04/01/25 12:59 04/02/25 07:37 Urinalysis Test 03/31/25 18:30 Urine Color Light-yellow (Yellow) Urine Clarity Clear (Clear) Urine pH 5.5 (5.0-9.0) Urine Specific [place] 1.023 (1.001-1.035) Urine Protein Trace (Negative) H Urine Ketones 4+ (Negative) H Urine Blood Negative /uL (Negative) Urine Nitrite Negative (Negative) Urine Bilirubin Negative (Negative) Urine Urobilinogen Normal mg/dL (Negative) Urine Leukocyte Esterase Negative /uL (Negative) Urine RBC 1 /hpf (0 - 3) Urine Microscopic WBC < 1 /HPF (0-3) Urine Squamous Epithelial Cells None seen /hpf (<5) Urine Bacteria None seen /hpf (None Seen) Urine Glucose 4+ mg/dL (Normal) H Microbiology Microbiology Date/Time Source Procedure Growth Status 03/31/25 18:00 Blood Blood Culture - Preliminary NO GROWTH AFTER 24 HOURS OF INCUBATION. Resulted Assessment/Plan Assessment/Plan DKA Severe lactic acidosis Anion gap closed long acting zofran and reglan IVF Plan discussed with: Patient My Orders Orders - APOLINAR VIDAL MD Procedure Category Date Status Time Metoclopramide PHA 04/02/25 In Process Injection (Reglan 08:15 Clear Liq Diet DIET 04/02/25 Transmitted Breakfast Date of Service: April 02, 2025 Billing Provider: APOLINAR VIDAL MD Common Visit Codes: [id number] INP/OBS CARE(HIGH) APOLINAR VIDAL MD April 02, 2025 17:50
[2025-04-02 21:00] VITALS: BP 101/67; PULSE 70; RESP 18; TEMP 98.2; O2SAT 100
[2025-04-03] VITALS (8 sets, daily range): BP systolic 104–120; BP diastolic 66–80; PULSE 64–95; RESP 15–18; TEMP 97.9–98.8; O2SAT 95–99
[2025-04-03 10:39] LABS: Basophils # (auto) 0 10 ^3/uL (0-0.2); Basophils % (auto) 0.7 % (0.0-2.0); Eosinophils # (auto) 0.1 10 ^3/uL (0-0.8); Eosinophils % (auto) 1.9 % (0.0-7.0); Hematocrit 35.3 % (41.0-53.0); Hemoglobin 12.1 g/dL (13.5-17.5); Lymphocytes # (auto) 1.3 10 ^3/uL (0.4-5.4); Lymphocytes % (auto) 27.6 % (10.0-50.0); Mean Corpuscular Hemoglobin 30.9 pg (28.0-32.0); Mean Corpuscular Hgb Conc. 34.2 g/dL (32.0-36.0); Mean Corpuscular Volume 90.3 fL (80.0-100.0); Monocytes # (auto) 0.2 10 ^3/uL (0-1.3); Monocytes % (auto) 4.1 % (0.0-12.0); Neutrophils # (auto) 3.2 10 ^3/uL (1.6-8.6); Neutrophils % (auto) 65.7 % (37.0-80.0); Platelet Count (auto) 166 10^3/uL (140-450); Red Blood Cells 3.91 10^6/uL (4.5-5.90); Red Cell Distribution Width 15.3 % (11.8-14.3); White Blood Cell 4.8 10^3/uL (4.4-10.8)
--- NOTE | 2025-04-03 21:05 | DVHPN2 ---
Subjective He is able to eat today now Reviewed: Care Plan, H&P Changes from previous H/P or p: No Changes Objective Vitals Vital Signs Date Time Temp Pulse Resp B/P (MAP) Pulse Ox O2 Delivery O2 Flow Rate FiO2 04/03/25 17:13 98.6 83 17 111/67 (82) 95 98.6 04/03/25 08:00 Room Air* 0 21 Intake/Output Intake and Output 04/03/25 07:00 Intake Total 1425 ml Output Total 2000 ml Balance -575 ml Intake Oral 1125 ml IV Total 300 ml Output Urine Total 2000 ml General Appearance: Alert, Oriented X3 Lungs: Clear to auscultation Cardiovascular: Regular rate, Normal S1, Normal S2 Medications Current Medications Medications Dose Ordered Sig/Mariela Route Start Time Stop Time Status Last Admin Dose Admin Insulin Glargine 15 units DAILY SC 04/01/25 10:00 04/03/25 10:39 15 UNITS Sodium Chloride 10 ml Q8HR IV 03/31/25 22:00 04/03/25 14:00 10 ML Docusate Sodium 100 mg BIDPRN PRN PO 03/31/25 20:00 03/31/25 21:08 100 MG Acetaminophen 650 mg Q6HP PRN PO 03/31/25 20:00 03/31/25 21:07 650 MG Acetaminophen/ Hydrocodone Bitart 1 tab Q4HP PRN PO 03/31/25 20:00 04/03/25 19:49 1 TAB Ondansetron HCl 4 mg Q4HP PRN IV 03/31/25 20:00 Hold 04/02/25 06:59 4 MG Enoxaparin Sodium 40 mg DAILY SC 04/01/25 10:00 04/03/25 09:35 40 MG Diagnostic Test (Pha) 1 strip ACHS 04/01/25 11:30 04/03/25 17:09 1 STRIP Insulin Human Regular HS SC 04/01/25 22:00 04/01/25 21:22 2 UNITS Insulin Human Regular AC SC 04/01/25 11:30 Dextrose 50 ml UD PRN IV 04/01/25 07:30 Piperacillin Sod/ Tazobactam Sod 100 ml @ 25 mls/hr Q6HR IV 04/01/25 12:00 04/03/25 18:11 25 MLS/HR Amlodipine Besylate 10 mg DAILY PO 04/01/25 10:00 04/03/25 09:36 10 MG Potassium Chloride/Sodium Chloride 1,000 ml @ 100 mls/hr Q10H IV 04/01/25 08:15 04/03/25 19:53 100 MLS/HR Hydromorphone HCl 0.5 mg Q4HPRN PRN IV 04/01/25 14:15 04/03/25 15:50 0.5 MG Metoclopramide HCl 10 mg Q6HPRN PRN IV 04/02/25 08:15 04/03/25 15:48 10 MG Laboratory Results Laboratory Tests 04/01/25 12:59 04/03/25 10:25 Urinalysis Test 03/31/25 18:30 Urine Color Light-yellow (Yellow) Urine Clarity Clear (Clear) Urine pH 5.5 (5.0-9.0) Urine Specific [place] 1.023 (1.001-1.035) Urine Protein Trace (Negative) H Urine Ketones 4+ (Negative) H Urine Blood Negative /uL (Negative) Urine Nitrite Negative (Negative) Urine Bilirubin Negative (Negative) Urine Urobilinogen Normal mg/dL (Negative) Urine Leukocyte Esterase Negative /uL (Negative) Urine RBC 1 /hpf (0 - 3) Urine Microscopic WBC < 1 /HPF (0-3) Urine Squamous Epithelial Cells None seen /hpf (<5) Urine Bacteria None seen /hpf (None Seen) Urine Glucose 4+ mg/dL (Normal) H Microbiology Microbiology Date/Time Source Procedure Growth Status 03/31/25 18:00 Blood Blood Culture - Preliminary NO GROWTH AFTER 72 HOURS OF INCUBATION. Resulted Assessment/Plan Assessment/Plan DKA Severe lactic acidosis Anion gap closed long acting zofran and reglan IVF If tolerates diet will plan to DC tomorrow Plan discussed with: Patient Date of Service: April 03, 2025 Billing Provider: APOLINAR VIDAL MD Common Visit Codes: [id number] INP/OBS CARE(HIGH) APOLINAR VIDAL MD April 03, 2025 21:05
[2025-04-04 05:00] VITALS: BP 113/78; PULSE 67; RESP 17; TEMP 98.3; O2SAT 100
[2025-04-04 07:15] LABS: Basophils # (auto) 0.1 10 ^3/uL (0-0.2); Basophils % (auto) 1.3 % (0.0-2.0); Eosinophils # (auto) 0.1 10 ^3/uL (0-0.8); Eosinophils % (auto) 2.6 % (0.0-7.0); Hematocrit 36.8 % (41.0-53.0); Hemoglobin 12.7 g/dL (13.5-17.5); Lymphocytes # (auto) 1.2 10 ^3/uL (0.4-5.4); Lymphocytes % (auto) 29.1 % (10.0-50.0); Mean Corpuscular Hgb Conc. 34.4 g/dL (32.0-36.0); Mean Corpuscular Volume 90.1 fL (80.0-100.0); Monocytes # (auto) 0.2 10 ^3/uL (0-1.3); Monocytes % (auto) 4.4 % (0.0-12.0); Neutrophils # (auto) 2.7 10 ^3/uL (1.6-8.6); Neutrophils % (auto) 62.6 % (37.0-80.0); Nucleated Red Blood Cells % 0.2 %; Platelet Count (auto) 171 10^3/uL (140-450); Red Blood Cells 4.09 10^6/uL (4.5-5.90); Red Cell Distribution Width 15.3 % (11.8-14.3); White Blood Cell 4.3 10^3/uL (4.4-10.8)
[2025-04-04 08:00] VITALS: PULSE 73; RESP 18; O2SAT 96
[2025-04-04 09:00] VITALS: BP 126/70; PULSE 81; RESP 17; TEMP 97.6; O2SAT 99
--- NOTE | 2025-04-04 12:28 | ECG ---
[facility] Test Date: 2025-03-31 Test Time: 16:22:55 Pat Name: ILSA MIRELES Department: ED Room: [facility]5T B Gender: M [employer]ic: DAMIAN : 1985 Requested By: DEANNE WEBSTER Order Number: [id number] Reading MD: Roge Gutierrez Measurements Intervals Rosine Rate: 129 P: 85 [place]: 111 QRS: 236 QRSD: 88 T: 19 QT: 334 QTc: 490 Interpretive Statements Sinus tachycardia Markedly posterior QRS axis Borderline prolonged QT interval Electronically Signed On 04-06-2025 9:28:57 PDT by Roge Gutierrez Please click the below link to view image of tracing.
[2025-04-04 13:00] VITALS: BP 113/73; PULSE 81; RESP 16; TEMP 98.2; O2SAT 99
[2025-04-04] MEDS ORDERED: BLOO-169 XX (15:32)
[2025-04-04] MEDS ORDERED: AML5T PO (15:32)
[2025-04-04] MEDS ORDERED: LANC-347 XX (15:32)
[2025-04-04 15:58] VITALS: BP 128/86
[2025-04-04 17:00] VITALS: BP 116/71; PULSE 87; RESP 17; TEMP 97.8; O2SAT 98
== END 2025-04-04 16:35 | disposition home or self-care (01) | DRG 420 ==
LOC: EDBD 16:16 → EDUNIT# 16:16 → ER 16:20 → OVERFLOW 19:48 → TELE-WESTW 04-01 11:00
PROVIDERS: ADMIT Hospitalist; ATTEND Hospitalist
DX: E11.10 Type 2 diabetes mellitus with ketoacidosis without coma (principal); N17.0 Acute kidney failure with tubular necrosis; I10 Essential (primary) hypertension; Z90.49 Acquired absence of other specified parts of digestive tract; Z79.84 Long term (current) use of oral hypoglycemic drugs; Z79.899 Other long term (current) drug therapy; Z79.4 Long term (current) use of insulin
CPT/HCPCS: 36415; 80048; 80053; 81001; 82010; 82962; 83605; 83690; 83735; 83930; 84100; 85025; 87040; 93005; 96365; 96372; 96375; 99291; G0378; J1815; J2003; J2405; J2543; J3480